=== PATIENT | male | born 1995 | race Caucasian/White ===

== ENCOUNTER 2018-05-20 05:06 | Inpatient (IN) | payer OTHER, MEDICAID ==
[2018-05-20] VITALS (33 sets, daily range): BP systolic 113–165; BP diastolic 46–106
[~2018-05-20] VITALS: Ht 185.4 cm; Wt 119.4 kg
[2018-05-20] MEDS ORDERED: SODIUM CHLORIDE 0.9% 1,000 ML IVB ONE (05:35)
[2018-05-20] MEDS ORDERED: SODIUM CHLORIDE 0.9% 2,000 ML IV ONE ×2 (05:45→06:45)
[2018-05-20 05:46] LABS: Basophils # (auto) 0.1 uL; Basophils % (auto) 0.3 % (0.0-2.0); Eosinophils # (auto) 0 uL; Hemoglobin 18.3 g/dL (13.5-17.5); Monocytes # (auto) 2.3 uL
[2018-05-20 05:48] LABS: Lymphocytes # (auto) 2.1 uL; Lymphocytes % (auto) 7.8 % (10.0-50.0); Mean Corpuscular Hemoglobin 29.9 pg (28.0-32.0); Mean Corpuscular Hgb Conc. 29.8 g/dL (32.0-36.0); Mean Corpuscular Volume 100.1 fL (80.0-100.0); Monocytes % (auto) 8.6 % (0.0-12.0); Neutrophils # (auto) 22.3 uL; Neutrophils % (auto) 83.3 % (37.0-80.0); Platelet Count (auto) 327 10^3/uL (140-450); Red Blood Cells 6.13 10^6/uL (4.5-5.90); Red Cell Distribution Width 14.9 % (11.8-14.3); White Blood Cell 26.8 10^3/uL (4.4-10.8)
[2018-05-20] MEDS ORDERED: InsuLIN REG 1unit/0.01ml Soln (100units/ml) IV ONE (06:00)
[2018-05-20 06:02] LABS: Urine Bacteria FEW /hpf (None Seen); Urine Blood 1+ /uL (Negative); Urine Specific Gravity 1.023 (1.001-1.035); Urine WBC 1 /hpf (0 - 3)
[2018-05-20 06:02] LABS: Hematocrit 61.4 % (41.0-53.0)
[2018-05-20 06:05] LABS: Alanine Aminotransferase 31 U/L (16-61); Albumin 4.1 g/dL (3.4-5.0); Anion Gap 31 (5-15); Aspartate Aminotransferase 12 U/L (15-37); BUN/Creatinine Ratio 15.4; Blood Urea Nitrogen 35 mg/dL (7-18); Chloride 95 mmol/L (98-107); GFR African American 46 mL/min; GFR Non-African American 38 mL/min; Potassium 5.4 mmol/L (3.5-5.1); Sodium 130 mmol/L (136-145)
[2018-05-20 06:06] LABS: Alcohol, Urine < 3.0 mg/dL (0-5); Amphetamine Screen, Urine NEGATIVE (NEGATIVE); Barbiturate Scree,Urine NEGATIVE (NEGATIVE); Benzodiazephine Screen, Urine NEGATIVE (NEGATIVE); Cannabinoid Screen, Urine NEGATIVE (NEGATIVE); Cocaine Screen, Urine NEGATIVE (NEGATIVE); Opiate Scree,Urine NEGATIVE (NEGATIVE); Phencyclidine Screen, Urine NEGATIVE (NEGATIVE)
[2018-05-20 06:08] LABS: Alkaline Phosphatase 180 U/L (45-117); Bilirubin, Total 0.6 mg/dL (0.2-1.0); Total Protein 9.4 g/dL (6.4-8.2)
[2018-05-20 06:09] LABS: INR 0.99 (0.9-1.15); Partial Thromboplastin Time 38.4 sec (23.78-33.04); Prothrombin Time 10.6 sec (9.27-12.13)
[2018-05-20 06:12] LABS: Blood Alcohol < 3.0 mg/dL (0-5); Magnesium 3.7 mg/dL (1.6-2.6)
[2018-05-20 06:21] LABS: Carbon Dioxide 4 mmol/L (21-32)
[2018-05-20 06:24] LABS: Glucose 857 mg/dL (74-106)
[2018-05-20] MEDS ORDERED: SODIUM BICARBONATE 8.4 % INJ 50ML VIAL IV ONE ×2 (06:30→07:30)
[2018-05-20] MEDS ORDERED: InsuLIN R (HUMAN) 100 UNITS in SODIUM CHL 0.9% 99 ML IV SCH (06:43)
[2018-05-20] MEDS ORDERED: DEXTROSE (50%) 50ML SYRG IV PRN ×2 (06:45→13:15)
[2018-05-20] MEDS ORDERED: SODIUM CHLORIDE 0.9% 1,000 ML IV ONE (06:45)
[2018-05-20] MEDS ORDERED: cefTRIAXone 1GM/50ML D5W 50 ML IV ONE (12:45)
[2018-05-20] MEDS ORDERED: SODIUM CHLORIDE 0.9% 1,000 ML IV SCH (13:04)
[2018-05-20] MEDS ORDERED: PROMETHAZINE HCL 25 MG/ML 1ML IV PRN (13:15)
[2018-05-20] MEDS ORDERED: MORPHINE SULFATE 4 MG/ML SYR/VIAL IV PRN ×2 (13:15)
[2018-05-20] MEDS ORDERED: LACTULOSE 20Gm/30ML SOLN PO PRN (13:15)
[2018-05-20] MEDS ORDERED: LORazepam 0.5 MG TAB PO PRN (13:15)
[2018-05-20] MEDS ORDERED: TEMAZEPAM 15 MG CAP PO PRN (13:15)
[2018-05-20] MEDS ORDERED: NITROGLYCERIN 0.4 MG SL TAB SL PRN (13:15)
[2018-05-20] MEDS ORDERED: HYDROcodone-ACET 5/325MG TAB PO PRN (13:15)
[2018-05-20] MEDS: InsuLIN R (HUMAN) 100 UNITS in SODIUM CHL 0.9% 99 ML IV SCH ×5 (13:45→21:28)
[2018-05-20] MEDS: ACCU-CHEK COMFORT CURVE STRIP VI SCH ×7 (13:48→22:35)
[2018-05-20] MEDS: SODIUM CHLORIDE 0.9% 1,000 ML IV SCH ×3 (15:10→17:30)
[2018-05-20 15:25] LABS: Chloride 118 mmol/L (98-107); Potassium 4.4 mmol/L (3.5-5.1); Sodium 144 mmol/L (136-145)
[2018-05-20 15:26] LABS: Amylase 154 U/L (25-115); Anion Gap 19 (5-15); BUN/Creatinine Ratio 19.1; Blood Urea Nitrogen 30 mg/dL (7-18); GFR African American 71 mL/min; GFR Non-African American 59 mL/min; Glucose 267 mg/dL (74-106)
[2018-05-20 15:28] LABS: Carbon Dioxide 7 mmol/L (21-32)
[2018-05-20 19:21] LABS: BUN/Creatinine Ratio 15.5; Calcium 8.2 mg/dL (8.5-10.1)
[2018-05-21] VITALS (36 sets, daily range): BP systolic 119–177; BP diastolic 49–102
[2018-05-21] MEDS: ACCU-CHEK COMFORT CURVE STRIP VI SCH ×12 (00:24→19:49)
[2018-05-21 01:21] LABS: BUN/Creatinine Ratio 12.8; Calcium 8.7 mg/dL (8.5-10.1); Potassium 3.9 mmol/L (3.5-5.1)
[2018-05-21 03:52] LABS: Basophils # (auto) 0 uL; Basophils % (auto) 0.2 % (0.0-2.0); Eosinophils # (auto) 0 uL; Eosinophils % (auto) 0.2 % (0.0-7.0); Hematocrit 47.6 % (41.0-53.0); Hemoglobin 15.8 g/dL (13.5-17.5); Lymphocytes # (auto) 0.7 uL; Lymphocytes % (auto) 6.2 % (10.0-50.0); Mean Corpuscular Hemoglobin 30.3 pg (28.0-32.0); Mean Corpuscular Hgb Conc. 33.3 g/dL (32.0-36.0); Mean Corpuscular Volume 90.9 fL (80.0-100.0); Monocytes # (auto) 1.1 uL; Monocytes % (auto) 9.6 % (0.0-12.0); Neutrophils # (auto) 9.2 uL; Neutrophils % (auto) 83.8 % (37.0-80.0); Platelet Count (auto) 171 10^3/uL (140-450); Red Blood Cells 5.23 10^6/uL (4.5-5.90); Red Cell Distribution Width 14.6 % (11.8-14.3)
[2018-05-21 04:19] LABS: Albumin 3.3 g/dL (3.4-5.0); Calcium 8.8 mg/dL (8.5-10.1); Potassium 3.9 mmol/L (3.5-5.1)
[2018-05-21 04:23] LABS: BUN/Creatinine Ratio 12.7; Bilirubin, Total 0.4 mg/dL (0.2-1.0); Total Protein 7.6 g/dL (6.4-8.2)
[2018-05-21] MEDS: SODIUM CHLORIDE 0.9% 1,000 ML IV SCH ×2 (06:24→08:24)
[2018-05-21] MEDS ORDERED: cefTRIAXone 1GM/50ML D5W 50 ML IV SCH (09:00)
[2018-05-21] MEDS: PANTOPRAZOLE 40 MG TAB PO SCH (10:22)
[2018-05-21 10:48] LABS: Potassium 3.3 mmol/L (3.5-5.1)
[2018-05-21 10:55] LABS: BUN/Creatinine Ratio 13.2; Calcium 8.7 mg/dL (8.5-10.1)
[2018-05-21] MEDS ORDERED: POTASSIUM CHL 20 Meq TABLET PO ONE (12:15)
[2018-05-21] MEDS ORDERED: LACTATED RINGER'S 1,000 ML IV SCH (12:15)
[2018-05-21] MEDS ORDERED: INSULIN LANTUS (GLARGINE) 1 /0.01ml (100units/ml) SC ONE (12:15)
[2018-05-21] MEDS ORDERED: DEXTROSE (50%) 50ML SYRG IV PRN (14:30)
[2018-05-21] MEDS ORDERED: LISINOPRIL 10 MG TAB PO ONE (15:30)
[2018-05-21] MEDS: LACTATED RINGER'S 1,000 ML IV SCH ×2 (15:38→18:34)
[2018-05-21] MEDS: InsuLIN REG 1unit/0.01ml Soln (100units/ml) SC SCH ×2 (15:48→19:50)
[2018-05-21] MEDS ORDERED: LABETALOL HCL 5 MG/ML ML 20ML VIAL IV PRN (18:00)
[2018-05-22] VITALS (24 sets, daily range): BP systolic 104–152; BP diastolic 44–109
[2018-05-22] MEDS: ACCU-CHEK COMFORT CURVE STRIP VI SCH ×7 (01:45→23:46)
[2018-05-22] MEDS: InsuLIN REG 1unit/0.01ml Soln (100units/ml) SC SCH ×7 (01:46→23:46)
[2018-05-22 04:15] LABS: Basophils # (auto) 0 uL; Basophils % (auto) 0.1 % (0.0-2.0); Eosinophils # (auto) 0.1 uL; Eosinophils % (auto) 0.8 % (0.0-7.0); Hematocrit 42.2 % (41.0-53.0); Hemoglobin 14.1 g/dL (13.5-17.5); Lymphocytes # (auto) 0.7 uL; Lymphocytes % (auto) 11.9 % (10.0-50.0); Mean Corpuscular Hemoglobin 29.9 pg (28.0-32.0); Mean Corpuscular Hgb Conc. 33.3 g/dL (32.0-36.0); Mean Corpuscular Volume 89.5 fL (80.0-100.0); Monocytes # (auto) 0.7 uL; Monocytes % (auto) 10.5 % (0.0-12.0); Neutrophils # (auto) 4.8 uL; Neutrophils % (auto) 76.7 % (37.0-80.0); Nucleated Red Blood Cells % 0.1 %; Platelet Count (auto) 150 10^3/uL (140-450); Red Blood Cells 4.71 10^6/uL (4.5-5.90); Red Cell Distribution Width 14.3 % (11.8-14.3); White Blood Cell 6.2 10^3/uL (4.4-10.8)
[2018-05-22 04:29] LABS: Potassium 3.4 mmol/L (3.5-5.1)
[2018-05-22 04:37] LABS: Albumin 2.9 g/dL (3.4-5.0); BUN/Creatinine Ratio 12.1; Bilirubin, Total 0.6 mg/dL (0.2-1.0); Total Protein 6.7 g/dL (6.4-8.2)
[2018-05-22] MEDS: LACTATED RINGER'S 1,000 ML IV SCH ×3 (07:56→23:46)
[2018-05-22] MEDS: PANTOPRAZOLE 40 MG TAB PO SCH (09:46)
[2018-05-22] MEDS: LISINOPRIL 10 MG TAB PO SCH (10:00)
[2018-05-22] MEDS ORDERED: POTASSIUM CHL 20 Meq TABLET PO ONE ×2 (12:15→13:30)
[2018-05-22 12:54] LABS: BUN/Creatinine Ratio 14.4; Calcium 8.8 mg/dL (8.5-10.1); Potassium 3.2 mmol/L (3.5-5.1)
[2018-05-22] MEDS: INSULIN 70/30 1unit/0.01ml Susp (100units/ml) SC SCH (21:37)
[2018-05-23] VITALS (18 sets, daily range): BP systolic 99–147; BP diastolic 35–78
[2018-05-23] MEDS: InsuLIN REG 1unit/0.01ml Soln (100units/ml) SC SCH ×5 (03:32→20:08)
[2018-05-23] MEDS: ACCU-CHEK COMFORT CURVE STRIP VI SCH ×5 (03:32→20:08)
[2018-05-23] MEDS: LACTATED RINGER'S 1,000 ML IV SCH ×3 (08:07→23:06)
[2018-05-23] MEDS: PANTOPRAZOLE 40 MG TAB PO SCH (09:45)
[2018-05-23] MEDS: LISINOPRIL 10 MG TAB PO SCH (09:46)
[2018-05-23] MEDS: INSULIN 70/30 1unit/0.01ml Susp (100units/ml) SC SCH ×2 (09:46→22:27)
[2018-05-23] MEDS: ENOXAPARIN SOD 40 MG/0.4 ML SYRINGE SC SCH (09:47)
[2018-05-23 10:34] LABS: BUN/Creatinine Ratio 12.6; Calcium 8.4 mg/dL (8.5-10.1); Potassium 3.5 mmol/L (3.5-5.1)
[2018-05-24] MEDS: ACCU-CHEK COMFORT CURVE STRIP VI SCH ×6 (03:58→19:57)
[2018-05-24] MEDS: InsuLIN REG 1unit/0.01ml Soln (100units/ml) SC SCH ×6 (03:58→19:57)
[2018-05-24] MEDS: ACETAMINOPHEN 500 MG TAB PO PRN ×3 (04:04→18:14)
[2018-05-24 05:00] VITALS: BP 134/69
[2018-05-24 06:45] LABS: Albumin 2.8 g/dL (3.4-5.0); Calcium 8.6 mg/dL (8.5-10.1); Magnesium 2.5 mg/dL (1.6-2.6)
[2018-05-24 06:48] LABS: BUN/Creatinine Ratio 12.5; Bilirubin, Total 0.5 mg/dL (0.2-1.0); Total Protein 6.1 g/dL (6.4-8.2)
[2018-05-24 06:49] LABS: Potassium 2.7 mmol/L (3.5-5.1)
[2018-05-24] MEDS ORDERED: POTASSIUM CHL 20 Meq TABLET PO ONE ×2 (07:15→11:45)
[2018-05-24] MEDS: LACTATED RINGER'S 1,000 ML IV SCH (08:08)
[2018-05-24 08:55] VITALS: BP 108/48
[2018-05-24] MEDS: PANTOPRAZOLE 40 MG TAB PO SCH (09:53)
[2018-05-24] MEDS: ENOXAPARIN SOD 40 MG/0.4 ML SYRINGE SC SCH (09:53)
[2018-05-24] MEDS: INSULIN 70/30 1unit/0.01ml Susp (100units/ml) SC SCH ×2 (09:53→22:47)
[2018-05-24] MEDS ORDERED: LISINOPRIL 5 MG TAB PO SCH (10:00)
[2018-05-24] MEDS ORDERED: POTASSIUM CHL 20MEQ/100ML 100 ML IV ONE (11:45)
[2018-05-24 13:00] VITALS: BP 132/72
[2018-05-24 17:00] VITALS: BP 140/85
[2018-05-24 22:00] VITALS: BP 121/54
[2018-05-25] MEDS: InsuLIN REG 1unit/0.01ml Soln (100units/ml) SC SCH ×3 (00:50→08:42)
[2018-05-25] MEDS: ACCU-CHEK COMFORT CURVE STRIP VI SCH ×3 (04:00→08:42)
[2018-05-25 04:47] VITALS: BP 116/66
[2018-05-25 09:00] VITALS: BP 122/63
[2018-05-25] MEDS: ACETAMINOPHEN 500 MG TAB PO PRN (12:39)
[2018-05-25 13:00] VITALS: BP 122/71
== END 2018-05-25 16:45 | disposition home or self-care (01) | DRG 638 ==
LOC: EDBD 05:06 → ER 05:16 → TELE 13:08 → ICU WEST 15:30 → WEST WING 05-23 15:33 → TELE-WESTW 05-23 15:58
PROVIDERS: ADMIT Internal Medicine; ATTEND Internal Medicine
DX: E10.10 Type 1 diabetes mellitus with ketoacidosis without coma (principal); E44.0 Moderate protein-calorie malnutrition; R65.10 Systemic inflammatory response syndrome (SIRS) of non-infectious origin without acute organ dysfunction; J45.909 Unspecified asthma, uncomplicated; E66.9 Obesity, unspecified; D72.829 Elevated white blood cell count, unspecified; Z83.3 Family history of diabetes mellitus; Z82.49 Family history of ischemic heart disease and other diseases of the circulatory system; Z72.0 Tobacco use; Z68.34 Body mass index [BMI] 34.0-34.9, adult
CPT/HCPCS: 36415; 36600; 51702; 71045; 74176; 80048; 80053; 80307; 80320; 81001; 82150; 82805; 82962; 83036; 83605; 83690; 83735; 84132; 84484; 85025; 85610; 85652; 85730; 87040; 87081; 93005; 96361; 96365; 96367; 96375; 99291; A6257; G0378; J0696; J1815; J3480

== ENCOUNTER → 2019-07-22 | Outpatient (CLI) | payer OTHER ==
[2019-07-22 11:12] LABS: Basophils # (auto) 0 uL; Basophils % (auto) 0.3 % (0.0-2.0); Eosinophils # (auto) 0.1 uL; Eosinophils % (auto) 2.7 % (0.0-7.0); Hematocrit 49.5 % (41.0-53.0); Lymphocytes # (auto) 1.1 uL; Lymphocytes % (auto) 19.3 % (10.0-50.0); Mean Corpuscular Hgb Conc. 34.4 g/dL (32.0-36.0); Mean Corpuscular Volume 90.4 fL (80.0-100.0); Monocytes # (auto) 0.5 uL; Monocytes % (auto) 8.5 % (0.0-12.0); Neutrophils # (auto) 3.8 uL; Neutrophils % (auto) 69.2 % (37.0-80.0); Nucleated Red Blood Cells % 0.1 %; Platelet Count (auto) 202 10^3/uL (140-450); Red Blood Cells 5.47 10^6/uL (4.5-5.90); Red Cell Distribution Width 12.4 % (11.8-14.3); White Blood Cell 5.5 10^3/uL (4.4-10.8)
[2019-07-22 11:15] LABS: Urine Bacteria NONE SEEN /hpf (None Seen); Urine Blood Negative /uL (Negative); Urine Specific Gravity 1.046 (1.001-1.035); Urine WBC 1 /hpf (0 - 3)
[2019-07-22 11:51] LABS: Albumin 4.2 g/dL (3.4-5.0); Calcium 9.9 mg/dL (8.5-10.1); Potassium 4.6 mmol/L (3.5-5.1)
[2019-07-22 11:56] LABS: BUN/Creatinine Ratio 17.4; Bilirubin, Total 0.8 mg/dL (0.2-1.0); Total Protein 8.9 g/dL (6.4-8.2)
== END | disposition home or self-care (01) ==
LOC: LAB 10:51
PROVIDERS: ATTEND Nurse Practitioner
DX: Z00.00 Encounter for general adult medical examination without abnormal findings (principal); E78.5 Hyperlipidemia, unspecified; E11.9 Type 2 diabetes mellitus without complications
CPT/HCPCS: 36415; 80053; 80061; 81001; 82043; 83036; 84443; 85025

== ENCOUNTER 2019-08-10 17:26 | Inpatient (IN) | payer OTHER, MEDICAID ==
[~2019-08-10] VITALS: Ht 182.9 cm; Wt 92.4 kg
[2019-08-10 18:51] LABS: Basophils # (auto) 0 uL; Basophils % (auto) 0.1 % (0.0-2.0); Eosinophils # (auto) 0 uL; Eosinophils % (auto) 0.1 % (0.0-7.0); Hemoglobin 20.1 g/dL (13.5-17.5); Lymphocytes # (auto) 0.5 uL; Lymphocytes % (auto) 5.1 % (10.0-50.0); Mean Corpuscular Hemoglobin 31.9 pg (28.0-32.0); Mean Corpuscular Hgb Conc. 34.2 g/dL (32.0-36.0); Mean Corpuscular Volume 93.3 fL (80.0-100.0); Monocytes # (auto) 0.7 uL; Monocytes % (auto) 6.9 % (0.0-12.0); Neutrophils # (auto) 8.4 uL; Neutrophils % (auto) 87.8 % (37.0-80.0); Nucleated Red Blood Cells % 0.4 %; Platelet Count (auto) 232 10^3/uL (140-450); Red Blood Cells 6.31 10^6/uL (4.5-5.90); Red Cell Distribution Width 13.6 % (11.8-14.3); White Blood Cell 9.5 10^3/uL (4.4-10.8)
[2019-08-10 18:53] LABS: Hematocrit 58.9 % (41.0-53.0)
[2019-08-10 19:05] LABS: Albumin 4.6 g/dL (3.4-5.0); Calcium 10.1 mg/dL (8.5-10.1); Potassium 4.5 mmol/L (3.5-5.1)
[2019-08-10 19:09] LABS: BUN/Creatinine Ratio 8.5; Bilirubin, Total 0.6 mg/dL (0.2-1.0); Total Protein 10.6 g/dL (6.4-8.2)
[2019-08-10] MEDS ORDERED: ONDANSETRON HCL 4 MG/2 ML VIAL IV ONE (19:30)
[2019-08-10] MEDS ORDERED: SODIUM CHLORIDE 0.9% 1,000 ML IV ONE ×2 (19:30→21:15)
[2019-08-11] VITALS (7 sets, daily range): BP systolic 112–140; BP diastolic 46–80
[2019-08-11 00:09] LABS: Urine Bacteria FEW /hpf (None Seen); Urine Blood 1+ /uL (Negative); Urine Hyaline Cast MANY /lpf (0 - 2); Urine Mucus FEW (None Seen); Urine Specific Gravity 1.024 (1.001-1.035); Urine WBC 1 /hpf (0 - 3)
[2019-08-11 00:25] LABS: Amphetamine Screen, Urine NEGATIVE (NEGATIVE); Cannabinoid Screen, Urine POSITIVE (NEGATIVE)
[2019-08-11 00:27] LABS: Alcohol, Urine < 3.0 mg/dL (0-5); Barbiturate Scree,Urine NEGATIVE (NEGATIVE); Benzodiazephine Screen, Urine NEGATIVE (NEGATIVE); Cocaine Screen, Urine NEGATIVE (NEGATIVE); Opiate Scree,Urine NEGATIVE (NEGATIVE); Phencyclidine Screen, Urine NEGATIVE (NEGATIVE)
[2019-08-11] MEDS ORDERED: SODIUM BICARBONATE 8.4 % INJ 50ML VIAL IV ONE ×2 (01:00→01:54)
[2019-08-11] MEDS ORDERED: SODIUM BICARBONATE 50ML VIAL 50 ML in SOD CHL 0.45% 1,000 ML IV ONE (01:00)
[2019-08-11] MEDS ORDERED: MORPHINE SULF INJ 2 MG/ML SYRINGE 1ML IV PRN (02:30)
[2019-08-11] MEDS ORDERED: DEXTROSE (50%) 50ML SYRG IV PRN ×2 (02:30→14:15)
[2019-08-11] MEDS ORDERED: SODIUM CHLORIDE 0.9% 500 ML IV ONE (02:30)
[2019-08-11] MEDS ORDERED: ONDANSETRON HCL 4 MG/2 ML VIAL IV PRN (02:30)
[2019-08-11] MEDS ORDERED: NITROGLYCERIN 0.4 MG SL TAB SL PRN (02:30)
[2019-08-11] MEDS ORDERED: TEMAZEPAM 15 MG CAP PO PRN (02:30)
[2019-08-11 03:31] LABS: BUN/Creatinine Ratio 11.2; Calcium 8.6 mg/dL (8.5-10.1); Potassium 4.3 mmol/L (3.5-5.1)
[2019-08-11] MEDS: InsuLIN REG 1unit/0.01ml Soln (100units/ml) SC SCH ×4 (04:06→17:39)
[2019-08-11] MEDS: ACCU-CHEK COMFORT CURVE STRIP VI SCH ×5 (04:06→22:52)
[2019-08-11] MEDS ORDERED: INSU70IN3 SC (05:01)
[2019-08-11] MEDS: SODIUM CHLORIDE 0.9% 1,000 ML IV SCH ×2 (06:02→12:18)
[2019-08-11] MEDS: FAMOTIDINE 20 MG TAB PO SCH ×2 (10:09→22:17)
[2019-08-11] MEDS: INSULIN 70/30 1unit/0.01ml Susp (100units/ml) SC SCH (17:39)
[2019-08-11] MEDS ORDERED: InsuLIN REG 1unit/0.01ml Soln (100units/ml) SC SCH (22:00)
[2019-08-12 04:53] VITALS: BP 128/60
[2019-08-12 06:22] LABS: Basophils # (auto) 0 uL; Basophils % (auto) 0.4 % (0.0-2.0); Eosinophils # (auto) 0.2 uL; Hematocrit 42.1 % (41.0-53.0); Hemoglobin 14.5 g/dL (13.5-17.5); Lymphocytes # (auto) 1.4 uL; Lymphocytes % (auto) 29.1 % (10.0-50.0); Mean Corpuscular Hemoglobin 31.5 pg (28.0-32.0); Mean Corpuscular Hgb Conc. 34.5 g/dL (32.0-36.0); Mean Corpuscular Volume 91.5 fL (80.0-100.0); Monocytes # (auto) 0.5 uL; Monocytes % (auto) 10.9 % (0.0-12.0); Neutrophils # (auto) 2.8 uL; Neutrophils % (auto) 55.6 % (37.0-80.0); Platelet Count (auto) 118 10^3/uL (140-450); Red Cell Distribution Width 13.2 % (11.8-14.3)
[2019-08-12 06:48] LABS: BUN/Creatinine Ratio 13.2; Calcium 8.8 mg/dL (8.5-10.1)
[2019-08-12] MEDS: ACCU-CHEK COMFORT CURVE STRIP VI SCH ×2 (06:50→11:51)
[2019-08-12] MEDS: InsuLIN REG 1unit/0.01ml Soln (100units/ml) SC SCH ×2 (06:51→11:52)
[2019-08-12 07:06] LABS: Potassium 2.9 mmol/L (3.5-5.1)
[2019-08-12] MEDS: INSULIN 70/30 1unit/0.01ml Susp (100units/ml) SC SCH (08:56)
[2019-08-12 09:00] VITALS: BP 120/50
[2019-08-12] MEDS ORDERED: POTASSIUM CHL 20 Meq TABLET PO ONE (09:45)
[2019-08-12] MEDS ORDERED: POTASSIUM PHOSPHATE 44 MEQ in D5W 5% 250 ML IV ONE (09:45)
[2019-08-12] MEDS: FAMOTIDINE 20 MG TAB PO SCH (10:11)
[2019-08-12 13:00] VITALS: BP 141/65
[2019-08-12 15:59] VITALS: BP 141/65
== END 2019-08-12 16:42 | disposition home or self-care (01) | DRG 637 ==
LOC: ER 17:26 → TELE 17:27 → TELE-WESTW 08-11 04:35 → WEST WING 08-11 14:42
PROVIDERS: ADMIT Nurse Practitioner; ATTEND Internal Medicine
DX: E11.10 Type 2 diabetes mellitus with ketoacidosis without coma (principal); N17.0 Acute kidney failure with tubular necrosis; E86.0 Dehydration; F12.90 Cannabis use, unspecified, uncomplicated; F17.200 Nicotine dependence, unspecified, uncomplicated; Z82.5 Family history of asthma and other chronic lower respiratory diseases; Z79.4 Long term (current) use of insulin
CPT/HCPCS: 36415; 36600; 71045; 80048; 80053; 80307; 80320; 81001; 82010; 82805; 82962; 83605; 83880; 84100; 84132; 85025; 87804; 93005; 96361; 96365; 96375; G0378; J1815; J2405; J7060

== ENCOUNTER 2019-09-23 10:50 | Inpatient (IN) | payer MEDICAID, OTHER ==
[~2019-09-23] VITALS: Ht 188 cm; Wt 93.2 kg
[~2019-09-23 10:50] MED LIST: INSU70IN3 SC
[2019-09-23] MEDS ORDERED: SODIUM CHLORIDE 0.9% 1,000 ML IV ONE ×2 (11:02→13:15)
[2019-09-23] MEDS ORDERED: ONDANSETRON HCL 4 MG/2 ML VIAL IV ONE (11:15)
[2019-09-23 11:35] LABS: Basophils # (auto) 0 10 ^3/uL (0-0.2); Eosinophils # (auto) 0.1 10 ^3/uL (0-0.8); Lymphocytes # (auto) 1.3 10 ^3/uL (0.4-5.4); Monocytes # (auto) 0.8 10 ^3/uL (0-1.3); Red Cell Distribution Width 14.7 % (11.8-14.3); White Blood Cell 7.2 10^3/uL (4.4-10.8)
[2019-09-23 11:37] LABS: Basophils % (auto) 0.4 % (0.0-2.0); Eosinophils % (auto) 1.4 % (0.0-7.0); Hematocrit 55.4 % (41.0-53.0); Hemoglobin 20.1 g/dL (13.5-17.5); Lymphocytes % (auto) 17.9 % (10.0-50.0); Mean Corpuscular Hemoglobin 33.3 pg (28.0-32.0); Mean Corpuscular Hgb Conc. 36.3 g/dL (32.0-36.0); Mean Corpuscular Volume 91.8 fL (80.0-100.0); Monocytes % (auto) 11.1 % (0.0-12.0); Neutrophils % (auto) 69.2 % (37.0-80.0); Nucleated Red Blood Cells % 0.4 %; Platelet Count (auto) 283 10^3/uL (140-450); Red Blood Cells 6.03 10^6/uL (4.5-5.90)
[2019-09-23 11:46] LABS: Albumin 4.4 g/dL (3.4-5.0); Calcium 10.9 mg/dL (8.5-10.1); Potassium 3.5 mmol/L (3.5-5.1)
[2019-09-23 11:49] LABS: BUN/Creatinine Ratio 9.1; Bilirubin, Total 0.8 mg/dL (0.2-1.0); Total Protein 10.2 g/dL (6.4-8.2)
[2019-09-23] MEDS ORDERED: TEMAZEPAM 15 MG CAP PO PRN (13:00)
[2019-09-23] MEDS ORDERED: ACETAMINOPHEN 500 MG TAB PO PRN (13:00)
[2019-09-23] MEDS ORDERED: PROMETHAZINE HCL 25 MG/ML 1ML IV PRN (13:00)
[2019-09-23] MEDS ORDERED: NITROGLYCERIN 0.4 MG SL TAB SL PRN (13:00)
[2019-09-23] MEDS ORDERED: MORPHINE SULF INJ 2 MG/ML SYRINGE 1ML IV PRN (13:00)
[2019-09-23] MEDS ORDERED: DEXTROSE (50%) 50ML SYRG IV PRN (13:00)
[2019-09-23 13:17] LABS: Amylase 30 U/L (25-115); Lipase 111 U/L (73-393)
--- NOTE | 2019-09-23 13:45 | NUR ---
MS admit from ER KAREN MIKE admitted to tele/MS after SBAR received. Patient oriented to PATRIZIA CUNNINGHAM, RN primary RN, unit, room, bed, and unit policies regarding patient care and visiting hours. Patient weighed by bedscale and encouraged to call if they need something. All questions and concerns addressed, patient verbalized understanding. Note:
[2019-09-23 14:02] LABS: Urine Amorphous Crystal MOD /hpf (None Seen); Urine Bacteria NONE SEEN /hpf (None Seen); Urine Blood 3+ /uL (Negative); Urine Specific Gravity 1.022 (1.001-1.035); Urine WBC 27 /hpf (0 - 3)
[2019-09-23] MEDS ORDERED: cefTRIAXone 1GM/50ML D5W 50 ML IV ONE (14:45)
[2019-09-23 14:52] VITALS: BP 123/77
[2019-09-23 14:53] VITALS: BP 123/77
[2019-09-23] MEDS: ACCU-CHEK COMFORT CURVE STRIP VI SCH ×3 (16:21→23:55)
[2019-09-23] MEDS: InsuLIN REG 1unit/0.01ml Soln (100units/ml) SC SCH ×3 (16:23→23:59)
[2019-09-23] MEDS: SODIUM CHLORIDE 0.9% 1,000 ML IV SCH ×2 (18:30→20:11)
--- NOTE | 2019-09-23 18:30 | NUR ---
UNCOLLECTED UA PATIENT EDUCATED TO PROVIDE URINE SAMPLE, URINAL LEFT AT BEDSIDE.
--- NOTE | 2019-09-23 19:25 | NUR ---
Received report from the Day Shift RN Cookie. Initial assessment done.
--- NOTE | 2019-09-23 19:43 | NUR ---
Pt. SR @ 70's with HR = 71 @ the Tele # 35. Pt. denies any pain. Denies chest pain.
--- NOTE | 2019-09-23 20:16 | NUR ---
Accucheck taken @ 2015 Pm with result of BS = 287 , pt. will be given s/s coverage of Regular Human Insulin - see Emar.
--- NOTE | 2019-09-23 20:27 | NUR ---
Pt. given 9 units of Regular Human insulin SQ @ the [facility] with BS = 287 , see Emar. Pt. aware of his blood sugar and the s/s given/administered @ this time. Pt. verbalized understanding.
[2019-09-23] MEDS: INSULIN LANTUS (GLARGINE) 1 /0.01ml (100units/ml) SC SCH (21:27)
--- NOTE | 2019-09-23 21:27 | NUR ---
Pachecous 15 units given SQ @ [facility] @ 9723 Pm.
[2019-09-23] MEDS: FAMOTIDINE 20 MG TAB PO SCH (21:29)
[2019-09-23 22:00] VITALS: BP 119/54
--- NOTE | 2019-09-23 22:00 | NUR ---
Pt. given snacks/nourishment 2 jellos and 1 sandwich @ hs. [facility].
--- NOTE | 2019-09-23 23:53 | NUR ---
Accucheck taken with result of BS = 274 , pt. will be given Regular Human Insulin per s/s coverage - see Emar.
--- NOTE | 2019-09-23 23:59 | NUR ---
Pt. given 9 units coverage of Regular human Insulin for BS = 274 SQ @ the [facility]. Pt. aware of his blood sugar and the coverage.
--- NOTE | 2019-09-24 00:15 | NUR ---
Pt. SR @ 70's to 80's @ the Tele monitor # 35. Pt. denies pain and denies chest pain. Breathing regular and unlabored in Room Air. Chest expansion equal.
--- NOTE | 2019-09-24 00:30 | NUR ---
Pt. returned to sleep now. Keep pt. room free from noise and lights off to facilitate sleep and rest. Call-light within pt.'s reach.
[2019-09-24] MEDS: SODIUM CHLORIDE 0.9% 1,000 ML IV SCH ×4 (02:22→22:16)
--- NOTE | 2019-09-24 04:00 | NUR ---
Pt. sleeping and comfortable. IVF of NS continuously running @ 150 ml./hr. @ the RAC. SR @ 70's to 80's @ the Tele monitor # 35.
[2019-09-24] MEDS: ACCU-CHEK COMFORT CURVE STRIP VI SCH ×5 (04:46→20:24)
--- NOTE | 2019-09-24 04:46 | NUR ---
Accucheck result is 178, pt. will be given s/s coverage of Regular Human Insulin - see Emar.
[2019-09-24] MEDS: InsuLIN REG 1unit/0.01ml Soln (100units/ml) SC SCH ×5 (04:53→20:30)
--- NOTE | 2019-09-24 04:53 | NUR ---
Pt. given 3 units of Regular Human Insulin SQ @ the [facility] for BS result of 178 - see Emar. Pt. aware of the Insulin given and blood sugar result. Pt. verbalized understanding.
[2019-09-24 05:00] VITALS: BP 122/51
--- NOTE | 2019-09-24 05:00 | NUR ---
Collected Urine sample for U/A for bacterial count, dated, timed and signed by RN. Sellers and sent to lab.
[2019-09-24] MEDS: INSULIN LANTUS (GLARGINE) 1 /0.01ml (100units/ml) SC SCH ×2 (07:02→22:15)
[2019-09-24 07:17] LABS: Basophils # (auto) 0 10 ^3/uL (0-0.2); Basophils % (auto) 0.4 % (0.0-2.0); Eosinophils # (auto) 0.1 10 ^3/uL (0-0.8); Eosinophils % (auto) 2.6 % (0.0-7.0); Hematocrit 43.6 % (41.0-53.0); Hemoglobin 15.3 g/dL (13.5-17.5); Mean Corpuscular Hemoglobin 32.4 pg (28.0-32.0); Mean Corpuscular Volume 92.4 fL (80.0-100.0); Monocytes # (auto) 0.7 10 ^3/uL (0-1.3); Monocytes % (auto) 13.1 % (0.0-12.0); Neutrophils # (auto) 3.4 10 ^3/uL (1.6-8.6); Neutrophils % (auto) 64.9 % (37.0-80.0); Nucleated Red Blood Cells % 0.2 %; Platelet Count (auto) 174 10^3/uL (140-450); Red Blood Cells 4.72 10^6/uL (4.5-5.90); Red Cell Distribution Width 14.4 % (11.8-14.3); White Blood Cell 5.3 10^3/uL (4.4-10.8)
[2019-09-24 07:35] LABS: Albumin 3.1 g/dL (3.4-5.0); Potassium 3.4 mmol/L (3.5-5.1)
[2019-09-24 07:40] LABS: BUN/Creatinine Ratio 10.9; Bilirubin, Total 0.5 mg/dL (0.2-1.0)
[2019-09-24] MEDS: FAMOTIDINE 20 MG TAB PO SCH ×2 (08:25→22:15)
[2019-09-24 09:00] VITALS: BP 142/68
[2019-09-24] MEDS ORDERED: cefTRIAXone 1GM/50ML D5W 50 ML IV SCH (09:00)
[2019-09-24 13:00] VITALS: BP 127/62
[2019-09-24] MEDS ORDERED: POTASSIUM CHL 20 Meq TABLET PO ONE (14:15)
--- NOTE | 2019-09-24 14:58 | NUR ---
NUTRITION ASSESSMENT NOTES Please refer to link notes of nutrition screen form filed under the intervention section of the plan of care for further details. Est. Energy Needs: 5975-8857 kcal (25-30 kcal/kg BW). Est. Protein Needs: 70-88 gms/day (0.8-1.0 gms/kg BW). Will continue to monitor pertinent labs and reassess nutrient need prn Addendum: 09/24/19 at [address] Amended: Links added.
[2019-09-24] MEDS: traMADol HCL 50 MG TAB PO PRN (15:48)
--- NOTE | 2019-09-24 16:45 | NUR ---
Patient stated he has pain in his stomach and back. Patient stated the pain is a in his lower abdomen radiating to his back sharp throbbing pain. Patient stated his pain is making it hard to breath. V/s WNL Paged water control station engineer hospitalist. Awaiting call back. vs 134/86 bp heart rate 73, 21 respirations O2 97% on room air, temp 97.9 F did another blood glucose was 332.
[2019-09-24 17:00] VITALS: BP 108/52
--- NOTE | 2019-09-24 19:04 | NUR ---
Paged chemistry quality control technician hospitalist doctor Reji second time.awaiting call back.
--- NOTE | 2019-09-24 19:30 | NUR ---
Received report from Day Shift RN [place]. Initial assessment done. Pt. in bed resting, in Room Air, breathing regular and unlabored. Lngs are clear bilaterally. Pt. alert, awake, oriented x 4, with mild anxiety but stay calm and able to follow commands or compliant to care . Pt. was panicking early afternoon during the day shift @ 1645 pm. Pt. will be watched/monitor for s/s of anxiousness and will be treated/medicated with Lorazepam IV PRN as ordered from the doctor for pt. anxiety. Pt. calm and quiet @ this time. Provided psychological support. Pt. SR @ the monitor 70's to 80s @ the Tele # 35. Denies pain when assessed. Skin is intact. Call-light within pt.'s reach.
--- NOTE | 2019-09-24 19:48 | NUR ---
Received call back from Doctor Reji kaplan MD of patient complaints(see previous note). New orders received see emr for orders. Willl endorse to DILAN floyd.
[2019-09-24] MEDS ORDERED: ONDANSETRON HCL 4 MG/2 ML VIAL IV PRN (20:00)
[2019-09-24] MEDS ORDERED: LORazepam 2MG/ML-1ML VIAL IV PRN (20:00)
[2019-09-24] MEDS ORDERED: HYDROmorphone HCL 2 MG/ML VL IV ONE (20:00)
[2019-09-24] MEDS ORDERED: PANTOPRAZOLE 40 MG/10 ML VIAL INJ IV ONE (20:00)
[2019-09-24 22:00] VITALS: BP 144/86
--- NOTE | 2019-09-25 | NUR ---
Pt. is sleeping well @ this time. No s/s of sob. No s/s of pain or discomfort @ this time. Pt. SR @ the 60's to 70's @ the Tele # 35.
[2019-09-25] MEDS: ACCU-CHEK COMFORT CURVE STRIP VI SCH ×4 (00:53→12:00)
--- NOTE | 2019-09-25 00:53 | NUR ---
Pt. Accucheck taken and result of BS = 244 , Pt. will be given s/s coverage for Regular Human Insulin.
[2019-09-25] MEDS: InsuLIN REG 1unit/0.01ml Soln (100units/ml) SC SCH ×4 (00:57→12:00)
--- NOTE | 2019-09-25 00:57 | NUR ---
Pt. given 6 units of Regular human Insulin SQ @ the [facility] for BS = 244 , see Emar.
[2019-09-25] MEDS: traMADol HCL 50 MG TAB PO PRN (02:03)
--- NOTE | 2019-09-25 02:03 | NUR ---
Pt. given Ultram-Tramadol 50 mg. po due to back and abdominal pain about 6/10 scale. Pt. is also given Ondansetron -Zofran 4 mg. = 2ml IV for nausea feeling as verbalized by the pt.
--- NOTE | 2019-09-25 04:00 | NUR ---
Pt. sleeping undisturbed. SR @ the monitor @ the 70's. No s/s of acute change.
[2019-09-25 05:00] VITALS: BP 152/76
--- NOTE | 2019-09-25 05:02 | NUR ---
Pt. Accucheck result is = 223 , pt. will be given s/s coverage for Regular Human Insulin - see emar.
[2019-09-25] MEDS: INSULIN LANTUS (GLARGINE) 1 /0.01ml (100units/ml) SC SCH (06:15)
[2019-09-25] MEDS: SODIUM CHLORIDE 0.9% 1,000 ML IV SCH ×2 (06:16→14:15)
--- NOTE | 2019-09-25 07:15 | NUR ---
Opening shift note Assumed care patient currently sleeping, no s/s of distress/pain noted at this moment. Patient on room air. Bed in low position, locked and call light with in reach. Will continue care.
[2019-09-25 09:14] VITALS: BP 135/73
[2019-09-25] MEDS: FAMOTIDINE 20 MG TAB PO SCH (09:41)
--- NOTE | 2019-09-25 11:50 | NUR ---
refusing accucheck Patient refusing 1200 accucheck. Patient waiting on discharge. Patient states, " doctor came in a while back and he told me I was going to get discharged right now so i don't need that." Patient educated on importance of monitoring blood sugar while in the hospital and before meals. Patient continues to refuse. Patient states, " please just go work on my paperwork I'm trying to get out of here."
[2019-09-25 12:40] VITALS: BP 120/63
[2019-09-25 14:04] VITALS: BP 20/63
--- NOTE | 2019-09-25 14:41 | NUR ---
Discharge instructions given as ordered. Encourage to follow up with PMD as instructed. All questions and concerns addressed. Patient verbalized understanding. IV removed with catheter intact, pressure dressing applied. Telemetry unit returned to ICU. Patient taken to vehicle via wheelchair with all personal belongings, accompanied by staff. No distress noted at time of departure.
== END 2019-09-25 14:41 | disposition home or self-care (01) | DRG 420 ==
LOC: ER 10:51 → TELE 10:52 → TELE-CENTR 13:46
PROVIDERS: ADMIT Internal Medicine; ATTEND Internal Medicine
DX: E10.10 Type 1 diabetes mellitus with ketoacidosis without coma (principal); N17.0 Acute kidney failure with tubular necrosis; E10.65 Type 1 diabetes mellitus with hyperglycemia; E86.0 Dehydration; N39.0 Urinary tract infection, site not specified; Z91.19 Patient's noncompliance with other medical treatment and regimen
CPT/HCPCS: 36415; 71045; 80053; 81001; 82010; 82150; 82962; 83036; 83690; 85025; 87086; 93005; 96361; 96365; 96375; C9113; G0378; J0696; J1815; J2405

== ENCOUNTER 2019-10-04 20:41 | Inpatient (IN) | payer MEDICAID ==
[~2019-10-04] VITALS: Ht 182.9 cm; Wt 106.9 kg
[2019-10-04] MEDS ORDERED: InsuLIN REG 1unit/0.01ml Soln (100units/ml) IV ONE (21:45)
[2019-10-04 22:04] LABS: Basophils # (auto) 0 10 ^3/uL (0-0.2); Eosinophils # (auto) 0.2 10 ^3/uL (0-0.8); Eosinophils % (auto) 4.7 % (0.0-7.0); Hematocrit 37.6 % (41.0-53.0); Hemoglobin 12.3 g/dL (13.5-17.5); Lymphocytes # (auto) 1.1 10 ^3/uL (0.4-5.4); Lymphocytes % (auto) 32.9 % (10.0-50.0); Mean Corpuscular Hgb Conc. 32.6 g/dL (32.0-36.0); Mean Corpuscular Volume 98.1 fL (80.0-100.0); Monocytes # (auto) 0.5 10 ^3/uL (0-1.3); Monocytes % (auto) 13.8 % (0.0-12.0); Neutrophils # (auto) 1.7 10 ^3/uL (1.6-8.6); Neutrophils % (auto) 47.6 % (37.0-80.0); Nucleated Red Blood Cells % 0.2 %; Platelet Count (auto) 132 10^3/uL (140-450); Red Blood Cells 3.83 10^6/uL (4.5-5.90); Red Cell Distribution Width 16.5 % (11.8-14.3); White Blood Cell 3.5 10^3/uL (4.4-10.8)
[2019-10-04 22:17] LABS: Urine Bacteria NONE SEEN /hpf (None Seen); Urine Blood Negative /uL (Negative); Urine Specific Gravity 1.032 (1.001-1.035); Urine WBC <1 /hpf (0 - 3)
[2019-10-04 22:21] LABS: Albumin 2.8 g/dL (3.4-5.0); Amphetamine Screen, Urine NEGATIVE (NEGATIVE); Barbiturate Scree,Urine NEGATIVE (NEGATIVE); Benzodiazephine Screen, Urine NEGATIVE (NEGATIVE); Calcium 8.1 mg/dL (8.5-10.1); Cannabinoid Screen, Urine POSITIVE (NEGATIVE); Cocaine Screen, Urine NEGATIVE (NEGATIVE); Opiate Scree,Urine NEGATIVE (NEGATIVE); Phencyclidine Screen, Urine NEGATIVE (NEGATIVE)
[2019-10-04 22:22] LABS: INR 0.96 (0.9-1.15); Partial Thromboplastin Time 25.2 sec (23.64-32.05)
[2019-10-04 22:24] LABS: BUN/Creatinine Ratio 14.9; Bilirubin, Total 0.2 mg/dL (0.2-1.0); Total Protein 6.5 g/dL (6.4-8.2)
[2019-10-04] MEDS ORDERED: SODIUM CHLORIDE 0.9% 500 ML IV ONE (22:30)
[2019-10-05] MEDS ORDERED: IOHEXOL 350 MG/ML 100ML IJ ONE (04:26)
[2019-10-05] MEDS ORDERED: FUROSEMIDE 20 MG/2 ML VIAL IV ONE (04:30)
[2019-10-05] MEDS ORDERED: TEMAZEPAM 15 MG CAP PO PRN (06:30)
[2019-10-05] MEDS ORDERED: ACETAMINOPHEN 325 MG TAB PO PRN (06:30)
[2019-10-05] MEDS ORDERED: ONDANSETRON HCL 4 MG/2 ML VIAL IV PRN (06:30)
[2019-10-05] MEDS ORDERED: DEXTROSE (50%) 50ML SYRG IV PRN ×2 (06:30→14:15)
[2019-10-05 09:00] VITALS: BP 111/71
[2019-10-05] MEDS: FAMOTIDINE 20 MG TAB PO SCH ×2 (09:09→21:33)
[2019-10-05 11:10] VITALS: BP 111/71
[2019-10-05] MEDS ORDERED: InsuLIN REG 1unit/0.01ml Soln (100units/ml) SC SCH (12:00)
[2019-10-05] MEDS ORDERED: ACCU-CHEK COMFORT CURVE STRIP VI SCH (12:00)
[2019-10-05 13:00] VITALS: BP 120/60
[2019-10-05] MEDS ORDERED: levoFLOXacin 750MG 150 ML IV ONE (14:15)
[2019-10-05 17:00] VITALS: BP 115/64
[2019-10-05] MEDS: InsuLIN REG 1unit/0.01ml Soln (100units/ml) SC SCH ×2 (17:31→21:33)
[2019-10-05] MEDS: ACCU-CHEK COMFORT CURVE STRIP VI SCH ×2 (17:33→21:33)
[2019-10-05] MEDS: INSULIN 70/30 1unit/0.01ml Susp (100units/ml) SC SCH (17:34)
[2019-10-05 22:00] VITALS: BP 110/54
[2019-10-06 05:00] VITALS: BP 111/67
[2019-10-06] MEDS: InsuLIN REG 1unit/0.01ml Soln (100units/ml) SC SCH ×4 (06:28→21:57)
[2019-10-06] MEDS: ACCU-CHEK COMFORT CURVE STRIP VI SCH ×4 (06:28→21:56)
[2019-10-06 06:30] LABS: Basophils # (auto) 0 10 ^3/uL (0-0.2); Basophils % (auto) 0.9 % (0.0-2.0); Eosinophils # (auto) 0.2 10 ^3/uL (0-0.8); Eosinophils % (auto) 4.3 % (0.0-7.0); Hematocrit 38.4 % (41.0-53.0); Hemoglobin 12.8 g/dL (13.5-17.5); Lymphocytes # (auto) 1.2 10 ^3/uL (0.4-5.4); Lymphocytes % (auto) 32.2 % (10.0-50.0); Mean Corpuscular Hemoglobin 32.4 pg (28.0-32.0); Mean Corpuscular Hgb Conc. 33.3 g/dL (32.0-36.0); Mean Corpuscular Volume 97.4 fL (80.0-100.0); Monocytes # (auto) 0.4 10 ^3/uL (0-1.3); Monocytes % (auto) 10.1 % (0.0-12.0); Neutrophils % (auto) 52.5 % (37.0-80.0); Platelet Count (auto) 123 10^3/uL (140-450); Red Blood Cells 3.95 10^6/uL (4.5-5.90); Red Cell Distribution Width 16.7 % (11.8-14.3); White Blood Cell 3.8 10^3/uL (4.4-10.8)
[2019-10-06 06:35] LABS: INR 1.04 (0.9-1.15); Partial Thromboplastin Time 26.2 sec (23.64-32.05)
[2019-10-06 06:41] LABS: Calcium 8.3 mg/dL (8.5-10.1); Potassium 3.7 mmol/L (3.5-5.1)
[2019-10-06 06:43] LABS: BUN/Creatinine Ratio 9.9
[2019-10-06 06:44] LABS: % Iron Saturation 11.7 % (20-55)
[2019-10-06 06:46] LABS: Ferritin 71.4 ng/mL (10-322)
[2019-10-06] MEDS: INSULIN 70/30 1unit/0.01ml Susp (100units/ml) SC SCH ×2 (08:05→17:00)
[2019-10-06 08:30] VITALS: BP 101/53
[2019-10-06 08:51] VITALS: BP 101/53
[2019-10-06 09:50] LABS: Basophils # (auto) 0 10 ^3/uL (0-0.2); Basophils % (auto) 0.8 % (0.0-2.0); Eosinophils # (auto) 0.2 10 ^3/uL (0-0.8); Eosinophils % (auto) 4.8 % (0.0-7.0); Hematocrit 38.7 % (41.0-53.0); Hemoglobin 12.9 g/dL (13.5-17.5); Lymphocytes # (auto) 0.9 10 ^3/uL (0.4-5.4); Lymphocytes % (auto) 22.6 % (10.0-50.0); Mean Corpuscular Hemoglobin 32.3 pg (28.0-32.0); Mean Corpuscular Hgb Conc. 33.3 g/dL (32.0-36.0); Monocytes # (auto) 0.4 10 ^3/uL (0-1.3); Monocytes % (auto) 9.4 % (0.0-12.0); Neutrophils # (auto) 2.5 10 ^3/uL (1.6-8.6); Neutrophils % (auto) 62.4 % (37.0-80.0); Nucleated Red Blood Cells % 0.1 %; Platelet Count (auto) 116 10^3/uL (140-450); Red Blood Cells 3.99 10^6/uL (4.5-5.90); Red Cell Distribution Width 16.4 % (11.8-14.3)
[2019-10-06] MEDS: levoFLOXacin 750MG 150 ML IV SCH (10:27)
[2019-10-06] MEDS: FAMOTIDINE 20 MG TAB PO SCH ×2 (10:28→21:56)
[2019-10-06] MEDS ORDERED: MIDAZOLAM HCL 1MG/1ML-2 ML VIAL IV ONE (11:30)
[2019-10-06] MEDS ORDERED: LIDOCAINE VISCOUS 2% 15ML UD PO ONE (11:30)
[2019-10-06] MEDS ORDERED: diphenhdrAMINE HCL 50 MG/1 ML VL IV ONE (11:30)
[2019-10-06] MEDS ORDERED: fentaNYL CITRATE 100 MCG/2 ML VL IV ONE (11:30)
[2019-10-06] MEDS ORDERED: CYANOCOBALAMIN (B-12) 1000 MCG/1 ML VIAL SUBCUT ONE (12:00)
[2019-10-06 13:40] VITALS: BP_SYST 110; BP_SYST 128; BP_DIAS 59; BP_DIAS 77
[2019-10-06 17:00] VITALS: BP 111/72
[2019-10-06 22:00] VITALS: BP 124/76
[2019-10-07 04:43] VITALS: BP 106/54
[2019-10-07] MEDS: ACCU-CHEK COMFORT CURVE STRIP VI SCH ×4 (06:25→22:06)
[2019-10-07] MEDS: InsuLIN REG 1unit/0.01ml Soln (100units/ml) SC SCH ×4 (06:30→22:12)
[2019-10-07] MEDS ORDERED: IOHEXOL 300 MG/ML 100ML BOTTLE IJ ONE (07:39)
[2019-10-07 08:00] VITALS: BP 111/56
[2019-10-07] MEDS: INSULIN 70/30 1unit/0.01ml Susp (100units/ml) SC SCH ×2 (08:43→17:41)
[2019-10-07 09:00] VITALS: BP 111/56
[2019-10-07 09:15] LABS: Hepatitis B Surface Antibody Negative
[2019-10-07] MEDS: levoFLOXacin 750MG 150 ML IV SCH (09:36)
[2019-10-07] MEDS: FAMOTIDINE 20 MG TAB PO SCH ×2 (09:37→22:06)
[2019-10-07] MEDS: CYANOCOBALAMIN 500 MCG TAB PO SCH (09:37)
[2019-10-07 10:13] LABS: Hepatitis B Surface Antigen Negative (Negative); Hepatitis C Antibody Negative (Negative)
[2019-10-07 13:00] VITALS: BP 136/74
[2019-10-07 16:39] VITALS: BP 120/62
[2019-10-07] MEDS: FERROUS SULFATE 325 MG TAB PO SCH (17:39)
[2019-10-07 22:00] VITALS: BP 117/62
[2019-10-08 04:57] VITALS: BP 104/44
[2019-10-08 06:12] LABS: Basophils # (auto) 0 10 ^3/uL (0-0.2); Basophils % (auto) 0.8 % (0.0-2.0); Eosinophils # (auto) 0.2 10 ^3/uL (0-0.8); Eosinophils % (auto) 4.5 % (0.0-7.0); Hematocrit 37.8 % (41.0-53.0); Hemoglobin 12.6 g/dL (13.5-17.5); Lymphocytes # (auto) 1.2 10 ^3/uL (0.4-5.4); Mean Corpuscular Hemoglobin 32.4 pg (28.0-32.0); Mean Corpuscular Hgb Conc. 33.3 g/dL (32.0-36.0); Mean Corpuscular Volume 97.5 fL (80.0-100.0); Monocytes # (auto) 0.4 10 ^3/uL (0-1.3); Monocytes % (auto) 11.4 % (0.0-12.0); Neutrophils # (auto) 1.8 10 ^3/uL (1.6-8.6); Neutrophils % (auto) 50.3 % (37.0-80.0); Nucleated Red Blood Cells % 0.1 %; Platelet Count (auto) 110 10^3/uL (140-450); Red Blood Cells 3.88 10^6/uL (4.5-5.90); White Blood Cell 3.6 10^3/uL (4.4-10.8)
[2019-10-08 06:33] LABS: Albumin 2.5 g/dL (3.4-5.0); Calcium 8.2 mg/dL (8.5-10.1); Potassium 3.9 mmol/L (3.5-5.1)
[2019-10-08 06:40] LABS: BUN/Creatinine Ratio 6.4; Bilirubin, Total 0.7 mg/dL (0.2-1.0); Total Protein 5.7 g/dL (6.4-8.2)
[2019-10-08] MEDS: ACCU-CHEK COMFORT CURVE STRIP VI SCH ×3 (06:56→17:25)
[2019-10-08] MEDS: InsuLIN REG 1unit/0.01ml Soln (100units/ml) SC SCH ×3 (06:56→17:24)
[2019-10-08 09:00] VITALS: BP 127/80
[2019-10-08] MEDS ORDERED: FUROSEMIDE 20 MG TAB PO SCH (10:00)
[2019-10-08] MEDS ORDERED: POTASSIUM CHLORIDE 8 MEQ TAB PO SCH (10:00)
[2019-10-08] MEDS: FERROUS SULFATE 325 MG TAB PO SCH ×2 (11:07→17:25)
[2019-10-08] MEDS: levoFLOXacin 750MG 150 ML IV SCH (11:08)
[2019-10-08] MEDS: FAMOTIDINE 20 MG TAB PO SCH (11:08)
[2019-10-08] MEDS: CYANOCOBALAMIN 500 MCG TAB PO SCH (11:35)
[2019-10-08] MEDS: INSULIN 70/30 1unit/0.01ml Susp (100units/ml) SC SCH ×2 (11:48→17:26)
[2019-10-08 13:00] VITALS: BP_SYST 122; BP_SYST 124; BP_DIAS 70; BP_DIAS 74
[2019-10-08] MEDS ORDERED: LEVO500T21 PO (15:38)
[2019-10-08] MEDS ORDERED: FER325T PO (15:38)
[2019-10-08] MEDS ORDERED: INSU70IN3 SC (15:38)
[2019-10-08 16:40] VITALS: BP 132/59
[2019-10-08 20:14] VITALS: BP 108/52
== END 2019-10-08 21:00 | disposition home or self-care (01) | DRG 663 ==
LOC: ER 20:41 → OVERFLOW 20:42 → WEST WING 10-05 08:28
PROVIDERS: ADMIT Nurse Practitioner; ATTEND Internal Medicine
PROC: B246ZZ4 Ultrasonography of Right and Left Heart, Transesophageal (ICD-10-PCS; principal; 2019-10-06)
DX: D73.1 Hypersplenism (principal); D61.818 Other pancytopenia; J18.9 Pneumonia, unspecified organism; J90 Pleural effusion, not elsewhere classified; E44.0 Moderate protein-calorie malnutrition; E10.65 Type 1 diabetes mellitus with hyperglycemia; D50.9 Iron deficiency anemia, unspecified; F12.90 Cannabis use, unspecified, uncomplicated; E66.9 Obesity, unspecified; I89.0 Lymphedema, not elsewhere classified; R16.2 Hepatomegaly with splenomegaly, not elsewhere classified; Z82.49 Family history of ischemic heart disease and other diseases of the circulatory system; Z80.3 Family history of malignant neoplasm of breast; Z82.5 Family history of asthma and other chronic lower respiratory diseases; Z68.33 Body mass index [BMI] 33.0-33.9, adult
CPT/HCPCS: 36415; 71045; 71275; 74177; 80048; 80053; 80307; 81001; 82010; 82164; 82270; 82607; 82728; 82962; 83010; 83036; 83540; 83550; 83615; 83880; 84436; 84443; 84484; 85025; 85045; 85379; 85610; 85730; 86038; 86703; 86706; 86803; 87340; 93005; 93306; 93312; 93971; 99152; G0378; J1815; J1956; J2250

== ENCOUNTER 2019-12-22 17:38 | Inpatient (IN) | payer MEDICAID ==
[~2019-12-22] VITALS: Ht 182.9 cm; Wt 98.7 kg
[~2019-12-22 17:38] MED LIST changes: +FER325T PO; +LEVO500T21 PO
[2019-12-22 19:23] LABS: Basophils # (auto) 0 10 ^3/uL (0-0.2); Basophils % (auto) 0.1 % (0.0-2.0); Eosinophils # (auto) 0 10 ^3/uL (0-0.8); Hemoglobin 19.8 g/dL (13.5-17.5); Monocytes # (auto) 0.4 10 ^3/uL (0-1.3); Nucleated Red Blood Cells % 0.2 %
[2019-12-22 19:24] LABS: Eosinophils % (auto) 0.1 % (0.0-7.0); Lymphocytes # (auto) 0.8 10 ^3/uL (0.4-5.4); Mean Corpuscular Hemoglobin 31.5 pg (28.0-32.0); Mean Corpuscular Hgb Conc. 33.1 g/dL (32.0-36.0); Mean Corpuscular Volume 95.1 fL (80.0-100.0); Monocytes % (auto) 2.4 % (0.0-12.0); Neutrophils % (auto) 92.4 % (37.0-80.0); Platelet Count (auto) 255 10^3/uL (140-450); Red Cell Distribution Width 12.5 % (11.8-14.3); White Blood Cell 16.2 10^3/uL (4.4-10.8)
[2019-12-22 19:30] LABS: Hematocrit 59.9 % (41.0-53.0)
[2019-12-22 19:45] LABS: Albumin 4.8 g/dL (3.4-5.0); Calcium 9.7 mg/dL (8.5-10.1); Potassium 5.1 mmol/L (3.5-5.1)
[2019-12-22] MEDS ORDERED: SODIUM CHLORIDE 0.9% 1,000 ML IV ONE (19:45)
[2019-12-22 19:50] LABS: BUN/Creatinine Ratio 12.9; Bilirubin, Total 0.5 mg/dL (0.2-1.0); Total Protein 10.6 g/dL (6.4-8.2)
[2019-12-22 19:54] LABS: Urine WBC None Seen /hpf (0 - 3)
[2019-12-22 20:07] LABS: Urine Bacteria FEW /hpf (None Seen); Urine Blood 1+ /uL (Negative)
[2019-12-22] MEDS ORDERED: SODIUM CHLORIDE 0.9% 1,000 ML IVB ONE (20:40)
[2019-12-22] MEDS ORDERED: ONDANSETRON HCL 4 MG/2 ML VIAL IV ONE (20:45)
[2019-12-22 22:47] LABS: Magnesium 2.5 mg/dL (1.6-2.6)
[2019-12-22] MEDS ORDERED: InsuLIN R (HUMAN) 100 UNITS in SODIUM CHL 0.9% 99 ML IV SCH (23:12)
[2019-12-22] MEDS ORDERED: SODIUM CHLORIDE 0.9% 1,000 ML IV SCH (23:12)
[2019-12-22] MEDS ORDERED: DEXTROSE (50%) 50ML SYRG IV PRN (23:15)
[2019-12-22] MEDS ORDERED: InsuLIN REG 1unit/0.01ml Soln (100units/ml) IV ONE (23:15)
[2019-12-22] MEDS ORDERED: InsuLIN REG 1unit/0.01ml Soln (100units/ml) ONE (23:25)
[2019-12-22] MEDS: ACCU-CHEK COMFORT CURVE STRIP VI SCH (23:59)
[2019-12-23] MEDS ORDERED: ACETAMINOPHEN 325 MG TAB PO PRN (00:30)
[2019-12-23] MEDS ORDERED: MORPHINE SULF INJ 2 MG/ML SYRINGE 1ML IV PRN (00:30)
[2019-12-23] MEDS ORDERED: INSULIN LANTUS (GLARGINE) 1 /0.01ml (100units/ml) SC ONE (00:30)
[2019-12-23] MEDS ORDERED: TEMAZEPAM 15 MG CAP PO PRN (00:30)
[2019-12-23] MEDS ORDERED: HYDROcodone-ACET 5/325MG TAB PO PRN (00:30)
[2019-12-23] MEDS ORDERED: DEXTROSE (50%) 50ML SYRG IV PRN (00:30)
[2019-12-23] MEDS ORDERED: NITROGLYCERIN 0.4 MG SL TAB SL PRN (00:30)
[2019-12-23] MEDS ORDERED: ONDANSETRON HCL 4 MG/2 ML VIAL IV PRN (00:30)
[2019-12-23] MEDS: SODIUM CHLORIDE 0.9% 1,000 ML IV SCH ×5 (00:45→18:57)
[2019-12-23] MEDS: InsuLIN R (HUMAN) 100 UNITS in SODIUM CHL 0.9% 99 ML IV SCH ×2 (00:57→09:08)
[2019-12-23] MEDS ORDERED: SODIUM BICARBONATE 8.4 % INJ 50ML VIAL IV ONE (01:11)
[2019-12-23 01:18] LABS: Basophils # (auto) 0 10 ^3/uL (0-0.2); Eosinophils # (auto) 0 10 ^3/uL (0-0.8); Eosinophils % (auto) 0.1 % (0.0-7.0); Hemoglobin 18.2 g/dL (13.5-17.5); Lymphocytes # (auto) 0.6 10 ^3/uL (0.4-5.4); Mean Corpuscular Hgb Conc. 33.3 g/dL (32.0-36.0)
[2019-12-23 01:20] LABS: Basophils % (auto) 0.2 % (0.0-2.0); Hematocrit 54.6 % (41.0-53.0); Lymphocytes % (auto) 3.1 % (10.0-50.0); Mean Corpuscular Hemoglobin 31.8 pg (28.0-32.0); Mean Corpuscular Volume 95.3 fL (80.0-100.0); Monocytes # (auto) 0.9 10 ^3/uL (0-1.3); Monocytes % (auto) 4.8 % (0.0-12.0); Neutrophils # (auto) 17.7 10 ^3/uL (1.6-8.6); Neutrophils % (auto) 91.8 % (37.0-80.0); Nucleated Red Blood Cells % 1.1 %; Platelet Count (auto) 223 10^3/uL (140-450); Red Blood Cells 5.73 10^6/uL (4.5-5.90); Red Cell Distribution Width 12.7 % (11.8-14.3); White Blood Cell 19.3 10^3/uL (4.4-10.8)
[2019-12-23] MEDS: SODIUM BICARBONATE 50ML VIAL 100 ML in SOD CHL 0.45% 1,000 ML IV SCH ×2 (01:22→09:10)
[2019-12-23] MEDS: ACCU-CHEK COMFORT CURVE STRIP VI SCH ×15 (01:29→22:36)
[2019-12-23 01:39] LABS: BUN/Creatinine Ratio 10.3; Calcium 8.3 mg/dL (8.5-10.1); Magnesium 2.4 mg/dL (1.6-2.6); Phosphorus 3.9 mg/dL (2.5-4.90); Potassium 5.3 mmol/L (3.5-5.1)
[2019-12-23] MEDS ORDERED: SODIUM CHLORIDE 0.9% 1,000 ML IV SCH (03:12)
[2019-12-23 06:44] LABS: BUN/Creatinine Ratio 8.5; Calcium 8.7 mg/dL (8.5-10.1); Potassium 4.7 mmol/L (3.5-5.1)
[2019-12-23] MEDS: FAMOTIDINE 20 MG TAB PO SCH ×2 (07:35→22:36)
[2019-12-23 11:06] LABS: Magnesium 2.7 mg/dL (1.6-2.6); Phosphorus 4.2 mg/dL (2.5-4.90)
[2019-12-23] MEDS ORDERED: LOSARTAN POTASSIUM 25 MG TAB PO ONE (11:15)
[2019-12-23 12:24] LABS: BUN/Creatinine Ratio 7.6; Calcium 8.9 mg/dL (8.5-10.1); Potassium 4.3 mmol/L (3.5-5.1)
[2019-12-23 16:44] LABS: BUN/Creatinine Ratio 6.3; Calcium 8.9 mg/dL (8.5-10.1); Potassium 4.1 mmol/L (3.5-5.1)
[2019-12-24] MEDS: ACCU-CHEK COMFORT CURVE STRIP VI SCH ×7 (00:06→09:23)
[2019-12-24] MEDS: SODIUM CHLORIDE 0.9% 1,000 ML IV SCH (00:06)
[2019-12-24] MEDS: SODIUM BICARBONATE 50ML VIAL 100 ML in SOD CHL 0.45% 1,000 ML IV SCH (00:07)
[2019-12-24 05:37] LABS: Basophils # (auto) 0 10 ^3/uL (0-0.2); Basophils % (auto) 0.3 % (0.0-2.0); Eosinophils # (auto) 0.2 10 ^3/uL (0-0.8); Eosinophils % (auto) 3.6 % (0.0-7.0); Hematocrit 44.7 % (41.0-53.0); Hemoglobin 15.2 g/dL (13.5-17.5); Lymphocytes # (auto) 1.1 10 ^3/uL (0.4-5.4); Lymphocytes % (auto) 20.9 % (10.0-50.0); Mean Corpuscular Hemoglobin 31.5 pg (28.0-32.0); Mean Corpuscular Volume 92.6 fL (80.0-100.0); Monocytes # (auto) 0.4 10 ^3/uL (0-1.3); Monocytes % (auto) 7.4 % (0.0-12.0); Neutrophils # (auto) 3.6 10 ^3/uL (1.6-8.6); Neutrophils % (auto) 67.8 % (37.0-80.0); Nucleated Red Blood Cells % 0.1 %; Platelet Count (auto) 141 10^3/uL (140-450); Red Blood Cells 4.83 10^6/uL (4.5-5.90); Red Cell Distribution Width 12.2 % (11.8-14.3); White Blood Cell 5.3 10^3/uL (4.4-10.8)
[2019-12-24 05:45] LABS: Calcium 8.7 mg/dL (8.5-10.1)
[2019-12-24 05:50] LABS: BUN/Creatinine Ratio 9.8; Bilirubin, Total 0.6 mg/dL (0.2-1.0); Total Protein 6.9 g/dL (6.4-8.2)
[2019-12-24] MEDS ORDERED: POTASSIUM CHL 20MEQ/100ML 100 ML IV ONE (08:15)
[2019-12-24] MEDS ORDERED: POTASSIUM CHL 20 Meq TABLET PO ONE (08:15)
[2019-12-24] MEDS ORDERED: INSULIN LANTUS (GLARGINE) 1 /0.01ml (100units/ml) SC ONE (08:30)
[2019-12-24] MEDS ORDERED: DEXTROSE (50%) 50ML SYRG IV PRN (09:45)
[2019-12-24 10:00] VITALS: BP 129/64
[2019-12-24] MEDS: FAMOTIDINE 20 MG TAB PO SCH (10:00)
[2019-12-24] MEDS ORDERED: INSULIN LANTUS (GLARGINE) 1 /0.01ml (100units/ml) SC SCH (10:00)
[2019-12-24] MEDS ORDERED: LOSARTAN POTASSIUM 25 MG TAB PO SCH (10:00)
--- NOTE | 2019-12-24 10:00 | NUR ---
PATIENT IN ER ROOM 12, ADMITTED TO ICU FOR DKA. CURRENTLY OFF IV REGULAR INSULIN.
[2019-12-24 10:03] VITALS: BP 113/50
[2019-12-24] MEDS ORDERED: InsuLIN REG 1unit/0.01ml Soln (100units/ml) SC SCH (12:00)
[2019-12-24] MEDS ORDERED: ACCU-CHEK COMFORT CURVE STRIP VI SCH (12:00)
[2019-12-24 13:31] VITALS: BP 122/69
--- NOTE | 2019-12-24 13:53 | NUR ---
Discharge instructions given as ordered. Encourage to follow up with PMD as instructed IN 3-5 DAYS. All questions and concerns addressed. Patient verbalized understanding. Medication reconciliation form completed and copy given to patient. IV removed with catheter intact, pressure dressing applied. No distress noted at time of departure.
== END 2019-12-24 13:53 | disposition home or self-care (01) | DRG 420 ==
LOC: ER 17:38 → TELE 17:39
PROVIDERS: ADMIT Nurse Practitioner; ATTEND Internal Medicine
DX: E10.10 Type 1 diabetes mellitus with ketoacidosis without coma (principal); D72.829 Elevated white blood cell count, unspecified; I10 Essential (primary) hypertension; F12.90 Cannabis use, unspecified, uncomplicated; Z82.5 Family history of asthma and other chronic lower respiratory diseases; Z83.3 Family history of diabetes mellitus; Z91.19 Patient's noncompliance with other medical treatment and regimen
CPT/HCPCS: 36415; 36600; 71045; 80048; 80053; 81001; 82010; 82805; 82962; 83036; 83605; 83690; 83735; 83930; 84100; 85025; 93005; 96361; 96365; 96375; 99291; G0378; J1815; J2405; J3480

== ENCOUNTER 2020-01-28 20:54 | Inpatient (IN) | payer MEDICAID ==
[~2020-01-28] VITALS: Ht 175.3 cm; Wt 43.1 kg
[2020-01-28] MEDS ORDERED: SODIUM CHLORIDE 0.9% 2,850 ML IV ONE (21:30)
[2020-01-28] MEDS ORDERED: SODIUM BICARBONATE 8.4 % INJ 50ML VIAL IV ONE (21:30)
[2020-01-28 21:56] LABS: Basophils # (auto) 0 10 ^3/uL (0-0.2); Basophils % (auto) 0.2 % (0.0-2.0); Eosinophils # (auto) 0 10 ^3/uL (0-0.8); Eosinophils % (auto) 0.2 % (0.0-7.0); Hemoglobin 19.4 g/dL (13.5-17.5); Monocytes # (auto) 0.4 10 ^3/uL (0-1.3); Red Cell Distribution Width 13.2 % (11.8-14.3); White Blood Cell 13.1 10^3/uL (4.4-10.8)
[2020-01-28 21:58] LABS: Lymphocytes # (auto) 0.7 10 ^3/uL (0.4-5.4); Lymphocytes % (auto) 5.3 % (10.0-50.0); Mean Corpuscular Hemoglobin 30.9 pg (28.0-32.0); Mean Corpuscular Hgb Conc. 33.4 g/dL (32.0-36.0); Mean Corpuscular Volume 92.4 fL (80.0-100.0); Neutrophils % (auto) 91.3 % (37.0-80.0); Nucleated Red Blood Cells % 1.6 %; Platelet Count (auto) 211 10^3/uL (140-450); Red Blood Cells 6.29 10^6/uL (4.5-5.90)
[2020-01-28 22:14] LABS: Albumin 4.6 g/dL (3.4-5.0); Calcium 8.9 mg/dL (8.5-10.1); Potassium 4.7 mmol/L (3.5-5.1)
[2020-01-28 22:17] LABS: Bilirubin, Total 0.5 mg/dL (0.2-1.0)
[2020-01-28 22:33] LABS: Hematocrit 58.1 % (41.0-53.0)
[2020-01-28] MEDS ORDERED: KETOROLAC TROMETH 30 MG/ML 1ML VIAL IV ONE (23:00)
[2020-01-28] MEDS ORDERED: ACETAMINOPHEN 325 MG TAB PO ONE (23:00)
[2020-01-29] MEDS ORDERED: NITROGLYCERIN 0.4 MG SL TAB SL PRN (00:45)
[2020-01-29] MEDS ORDERED: ACETAMINOPHEN 325 MG TAB PO PRN (00:45)
[2020-01-29] MEDS ORDERED: TEMAZEPAM 15 MG CAP PO PRN (00:45)
[2020-01-29] MEDS ORDERED: SODIUM CHLORIDE 0.9% 1,000 ML IV ONE (00:45)
[2020-01-29] MEDS ORDERED: INSULIN LANTUS (GLARGINE) 1 /0.01ml (100units/ml) SC ONE ×2 (00:45→15:30)
[2020-01-29] MEDS ORDERED: MORPHINE SULF INJ 2 MG/ML SYRINGE 1ML IV PRN (00:45)
[2020-01-29] MEDS ORDERED: DEXTROSE (50%) 50ML SYRG IV PRN ×2 (00:45)
[2020-01-29] MEDS: SODIUM CHLORIDE 0.9% 1,000 ML IV SCH ×3 (01:07→21:01)
[2020-01-29 01:28] LABS: Urine Bacteria NONE SEEN /hpf (None Seen); Urine Blood TRACE /uL (Negative); Urine Specific Gravity 1.025 (1.001-1.035); Urine WBC <1 /hpf (0 - 3)
[2020-01-29] MEDS ORDERED: SODIUM BICARBONATE 8.4 % INJ 50ML VIAL IV ONE (01:37)
[2020-01-29] MEDS: SODIUM BICARBONATE 50ML VIAL 100 ML in SOD CHL 0.45% 1,000 ML IV SCH ×3 (01:45→21:01)
[2020-01-29 01:53] LABS: BUN/Creatinine Ratio 10.4; Calcium 7.4 mg/dL (8.5-10.1); Potassium 4.2 mmol/L (3.5-5.1)
[2020-01-29] MEDS: ACCU-CHEK COMFORT CURVE STRIP VI SCH ×5 (04:20→20:51)
[2020-01-29] MEDS: InsuLIN REG 1unit/0.01ml Soln (100units/ml) SC SCH ×5 (04:24→21:00)
[2020-01-29 08:41] LABS: BUN/Creatinine Ratio 9.6; Calcium 7.9 mg/dL (8.5-10.1); Potassium 3.9 mmol/L (3.5-5.1)
[2020-01-29] MEDS: ONDANSETRON HCL 4 MG/2 ML VIAL IV PRN ×3 (09:15→15:59)
[2020-01-29] MEDS: FAMOTIDINE 20 MG TAB PO SCH ×2 (09:57→22:48)
[2020-01-29 18:46] LABS: Basophils # (auto) 0 10 ^3/uL (0-0.2); Basophils % (auto) 0.3 % (0.0-2.0); Eosinophils # (auto) 0.3 10 ^3/uL (0-0.8); Hematocrit 47.9 % (41.0-53.0); Hemoglobin 15.9 g/dL (13.5-17.5); Lymphocytes # (auto) 0.9 10 ^3/uL (0.4-5.4); Lymphocytes % (auto) 16.4 % (10.0-50.0); Mean Corpuscular Hemoglobin 30.4 pg (28.0-32.0); Mean Corpuscular Hgb Conc. 33.3 g/dL (32.0-36.0); Mean Corpuscular Volume 91.3 fL (80.0-100.0); Monocytes # (auto) 0.6 10 ^3/uL (0-1.3); Monocytes % (auto) 9.7 % (0.0-12.0); Neutrophils # (auto) 3.9 10 ^3/uL (1.6-8.6); Neutrophils % (auto) 67.6 % (37.0-80.0); Nucleated Red Blood Cells % 0.1 %; Platelet Count (auto) 165 10^3/uL (140-450); Red Blood Cells 5.24 10^6/uL (4.5-5.90); White Blood Cell 5.8 10^3/uL (4.4-10.8)
[2020-01-29 19:05] LABS: BUN/Creatinine Ratio 6.2; Calcium 8.3 mg/dL (8.5-10.1); Potassium 3.6 mmol/L (3.5-5.1)
[2020-01-30] MEDS: ACCU-CHEK COMFORT CURVE STRIP VI SCH ×5 (00:32→16:00)
[2020-01-30] MEDS: InsuLIN REG 1unit/0.01ml Soln (100units/ml) SC SCH ×5 (01:46→16:00)
[2020-01-30] MEDS: SODIUM BICARBONATE 50ML VIAL 100 ML in SOD CHL 0.45% 1,000 ML IV SCH ×2 (05:07→13:51)
[2020-01-30 07:56] LABS: Basophils # (auto) 0 10 ^3/uL (0-0.2); Basophils % (auto) 0.4 % (0.0-2.0); Eosinophils # (auto) 0.3 10 ^3/uL (0-0.8); Eosinophils % (auto) 7.5 % (0.0-7.0); Hemoglobin 14.9 g/dL (13.5-17.5); Lymphocytes # (auto) 1.1 10 ^3/uL (0.4-5.4); Lymphocytes % (auto) 26.5 % (10.0-50.0); Mean Corpuscular Hemoglobin 31.3 pg (28.0-32.0); Mean Corpuscular Hgb Conc. 34.6 g/dL (32.0-36.0); Mean Corpuscular Volume 90.5 fL (80.0-100.0); Monocytes # (auto) 0.5 10 ^3/uL (0-1.3); Monocytes % (auto) 12.4 % (0.0-12.0); Neutrophils # (auto) 2.1 10 ^3/uL (1.6-8.6); Neutrophils % (auto) 53.2 % (37.0-80.0); Nucleated Red Blood Cells % 0.1 %; Platelet Count (auto) 134 10^3/uL (140-450); Red Blood Cells 4.76 10^6/uL (4.5-5.90); Red Cell Distribution Width 13.1 % (11.8-14.3)
[2020-01-30 08:09] LABS: Calcium 8.2 mg/dL (8.5-10.1); Potassium 3.2 mmol/L (3.5-5.1)
[2020-01-30 08:11] LABS: BUN/Creatinine Ratio 8.7
[2020-01-30] MEDS: SODIUM CHLORIDE 0.9% 1,000 ML IV SCH (09:43)
[2020-01-30] MEDS: FAMOTIDINE 20 MG TAB PO SCH (09:47)
[2020-01-30] MEDS ORDERED: INSULIN LANTUS (GLARGINE) 1 /0.01ml (100units/ml) SC SCH ×2 (10:00)
[2020-01-30 17:00] VITALS: BP 125/67
[2020-01-30] MEDS ORDERED: INSU70IN3 SC (18:14)
[2020-01-30] MEDS ORDERED: POTA-180 PO (18:14)
[2020-01-30] MEDS ORDERED: POTASSIUM CHL 20 Meq TABLET PO ONE ×2 (18:15→18:17)
== END 2020-01-30 19:18 | disposition home or self-care (01) | DRG 420 ==
LOC: EDBD 20:54 → ER 20:55 → TELE 20:56
PROVIDERS: ADMIT Nurse Practitioner; ATTEND Nurse Practitioner
DX: E10.10 Type 1 diabetes mellitus with ketoacidosis without coma (principal); D72.829 Elevated white blood cell count, unspecified; E86.0 Dehydration; E87.6 Hypokalemia; N17.0 Acute kidney failure with tubular necrosis; F12.90 Cannabis use, unspecified, uncomplicated; Z79.4 Long term (current) use of insulin; Z82.5 Family history of asthma and other chronic lower respiratory diseases; Z83.3 Family history of diabetes mellitus; Z91.14 Patient's other noncompliance with medication regimen
CPT/HCPCS: 36415; 36600; 71045; 80048; 80053; 81001; 82010; 82805; 82962; 83036; 83605; 83880; 85025; 99291; G0378; J1815; J1885; J2405

== ENCOUNTER 2020-03-08 11:59 | Inpatient (IN) | payer MEDICAID ==
[2020-03-08] VITALS (14 sets, daily range): BP systolic 113–151; BP diastolic 54–78
[~2020-03-08] VITALS: Ht 188 cm; Wt 94.6 kg
[~2020-03-08 11:59] MED LIST changes: -LEVO500T21 PO; +POTA-180 PO
[2020-03-08] MEDS ORDERED: SODIUM CHLORIDE 0.9% 1,000 ML IVB ONE (12:25)
[2020-03-08] MEDS ORDERED: ONDANSETRON HCL 4 MG/2 ML VIAL IV ONE (12:30)
[2020-03-08] MEDS ORDERED: SODIUM CHLORIDE 0.9% 1,000 ML IV ONE (13:00)
[2020-03-08 13:19] LABS: Eosinophils # (auto) 0 10 ^3/uL (0-0.8); Lymphocytes # (auto) 0.8 10 ^3/uL (0.4-5.4)
[2020-03-08 13:21] LABS: Basophils # (auto) 0.1 10 ^3/uL (0-0.2); Basophils % (auto) 0.4 % (0.0-2.0); Eosinophils % (auto) 0.1 % (0.0-7.0); Hematocrit 55.3 % (41.0-53.0); Hemoglobin 18.9 g/dL (13.5-17.5); Mean Corpuscular Hemoglobin 32.7 pg (28.0-32.0); Mean Corpuscular Hgb Conc. 34.2 g/dL (32.0-36.0); Mean Corpuscular Volume 95.5 fL (80.0-100.0); Monocytes # (auto) 0.5 10 ^3/uL (0-1.3); Monocytes % (auto) 3.5 % (0.0-12.0); Neutrophils # (auto) 12.7 10 ^3/uL (1.6-8.6); Nucleated Red Blood Cells % 0.4 %; Platelet Count (auto) 317 10^3/uL (140-450); Red Blood Cells 5.79 10^6/uL (4.5-5.90); Red Cell Distribution Width 13.5 % (11.8-14.3); White Blood Cell 14.2 10^3/uL (4.4-10.8)
[2020-03-08 13:28] LABS: INR 0.92 (0.9-1.15); Partial Thromboplastin Time 25.9 sec (23.0-31.2)
[2020-03-08 13:31] LABS: Calcium 10.2 mg/dL (8.5-10.1); Magnesium 2.3 mg/dL (1.6-2.6); Potassium 4.4 mmol/L (3.5-5.1)
[2020-03-08 13:35] LABS: Albumin 4.7 g/dL (3.4-5.0); BUN/Creatinine Ratio 10.5; Bilirubin, Total 0.4 mg/dL (0.2-1.0); Total Protein 10.2 g/dL (6.4-8.2)
[2020-03-08] MEDS ORDERED: InsuLIN R (HUMAN) 100 UNITS in SODIUM CHL 0.9% 99 ML IV SCH ×4 (13:52)
[2020-03-08] MEDS ORDERED: DEXTROSE (50%) 50ML SYRG IV PRN (14:00)
[2020-03-08] MEDS ORDERED: SODIUM BICARBONATE 8.4 % INJ 50ML VIAL IV ONE (14:15)
[2020-03-08 14:28] LABS: Urine Bacteria NONE SEEN /hpf (None Seen); Urine Blood TRACE /uL (Negative); Urine Specific Gravity 1.025 (1.001-1.035); Urine WBC <1 /hpf (0 - 3)
[2020-03-08] MEDS: ACCU-CHEK COMFORT CURVE STRIP VI SCH ×7 (15:08→23:57)
[2020-03-08] MEDS: SODIUM CHLORIDE 0.9% 1,000 ML IV SCH ×2 (15:09→15:52)
[2020-03-08] MEDS ORDERED: MORPHINE SULF INJ 2 MG/ML SYRINGE 1ML IV ONE ×2 (15:15)
[2020-03-08] MEDS ORDERED: PROMETHAZINE HCL 25 MG/ML 1ML IV ONE ×2 (15:15)
[2020-03-08] MEDS ORDERED: MORPHINE SULF INJ 2 MG/ML SYRINGE 1ML IV PRN (15:45)
[2020-03-08] MEDS ORDERED: NITROGLYCERIN 0.4 MG SL TAB SL PRN (15:45)
--- NOTE | 2020-03-08 16:30 | NUR ---
Midline Placement: Patient educated on need for midline placement. All risks and benefits explained and all questions and concerns addresses prior to procedure. 18g/10cm midline inserted via LEFT BRACHIAL vein using Ultrasound. Sterile technique utilized. Blood return obtained from SINGLE lumen and flushed easily with NS using proper technique. Midline secured with saline lock; biodisc and occlusive dressing applied. Primary RN notified. Midline lot # [id number].
[2020-03-08 16:33] LABS: Alcohol, Urine < 3.0 mg/dL (0-10); Amphetamine Screen, Urine NEGATIVE (NEGATIVE); Barbiturate Scree,Urine NEGATIVE (NEGATIVE); Benzodiazephine Screen, Urine NEGATIVE (NEGATIVE); Cannabinoid Screen, Urine NEGATIVE (NEGATIVE); Cocaine Screen, Urine NEGATIVE (NEGATIVE); Opiate Scree,Urine NEGATIVE (NEGATIVE); Phencyclidine Screen, Urine NEGATIVE (NEGATIVE)
--- NOTE | 2020-03-08 16:47 | NUR ---
REPORT REPORT RECEIVED FROM THE LIBRARY TECHNICAL ASSISTANT.
--- NOTE | 2020-03-08 16:55 | NUR ---
Pt being admitted to ICU KAREN MIKE admitted to ICU via eddie on traffic monitor specialist. Patient transferred to bed, connected to ICU monitoring, and weighed by bedscale, 91.2KG OR 201.1 POUNDS. Patient oriented to Lashanda Lovell, primary RN, unit, room, bed, and unit policies regarding patient care and visiting hours. All questions and concerns addressed, patient verbalized understanding. NOTE: PT GROGGY AFTER EARLIER DOSE OF MORPHINE. ABLE TO TELL ME HIS NAME, ,YEAR AND THAT HE IS IN THE HOSPITAL. DOZES OFF IF NOT BEING INTERACTED WITH. LUNGS CLEAR THROUGHOUT. ROOM AIR SAT OF 100%. TELE ST 118. PALPABLE PULSES TO ALL EXTREMITIES WITH NO EDEMA NOTED. ABD SOFT WITH HYPOACTIVE BOWEL SOUNDS. ABD ATHLETICS DIRECTOR. VOIDS VIA URINAL, NONE AT THIS TIME. VOIDED IN THE ER PRIOR TO ARRIVAL IN THE ICU. DENIES PAIN AFTER RECEIVING MORPHINE FOR ABD PAIN WHILE IN TH ER. RAILS UP X4 AND BED IN LOW POSITION FOR PT SAFETY. CONTINUE TO MONITOR.
[2020-03-08] MEDS ORDERED: SODIUM CHLORIDE 0.9% 1,000 ML IV SCH ×2 (17:52→19:52)
--- NOTE | 2020-03-08 18:20 | NUR ---
ACCUCHECK OF 149 AND DECREASED REGULAR INSULIN DRIP TO 1.5 UNITS/HR. CONTINUE TO MONITOR.
[2020-03-08 19:09] LABS: BUN/Creatinine Ratio 12.1; Calcium 8.2 mg/dL (8.5-10.1); Potassium 3.7 mmol/L (3.5-5.1)
--- NOTE | 2020-03-08 19:30 | NUR ---
Opening Shift Note Received report from day shift RN Lashanda. Pt is lying in bed, eyes closed. Easily arrousable. Pt is AAOx4. Pt oriented to staff and POC. Insulin Drip currently at 1.5units/hr. Bed is locked at lowest position, side rails are up. Pt educated on the call light and call light placed within reach. Pt verbalized understanding. Pt instructed to stay in bed at all times and to call if he needs anything. Will continue to monitor.
--- NOTE | 2020-03-08 19:55 | NUR ---
ACCUCHECK OF 140 AND CONTINUE IV REGULAR INSULIN DRIP AT 1.5 UNITS/HR.
--- NOTE | 2020-03-08 20:00 | NUR ---
REPORT REPORT GIVEN TO FLORESITA RICKS RN.
[2020-03-09] VITALS (37 sets, daily range): BP systolic 99–145; BP diastolic 38–74
[2020-03-09] MEDS: SODIUM CHLORIDE 0.9% 1,000 ML IV SCH ×3 (00:02→07:38)
--- NOTE | 2020-03-09 00:02 | NUR ---
Labs drawn Per MD orders and given to Altaf from lab
[2020-03-09 01:11] LABS: BUN/Creatinine Ratio 9.9; Calcium 8.2 mg/dL (8.5-10.1); Potassium 3.3 mmol/L (3.5-5.1)
[2020-03-09] MEDS: ACCU-CHEK COMFORT CURVE STRIP VI SCH ×10 (01:41→20:21)
--- NOTE | 2020-03-09 03:30 | NUR ---
Labs drawn given to Altaf from lab
[2020-03-09 05:32] LABS: BUN/Creatinine Ratio 10.3; Calcium 8.3 mg/dL (8.5-10.1)
--- NOTE | 2020-03-09 06:15 | NUR ---
Labs drawn and sent to lab
--- NOTE | 2020-03-09 06:55 | NUR ---
Dr Salas paged for Celiro3.0, awaiting call back.
--- NOTE | 2020-03-09 07:30 | NUR ---
Opening Shift Note Assumed care of patient, awake and alert. No S/S of distress/SOB or pain. See interventions for complete assessment. Bed locked on low position, side rails up x2, bed alarms on at all times, call pal within reach, instructed on POC and to call for assist PRN, will continue to monitor for changes Q1hr and PRN.
--- NOTE | 2020-03-09 07:40 | NUR ---
Received call from Dr Patel, updated on patient's status, verbalized understanding. Orders received, read back and verified. Will carry out.
[2020-03-09] MEDS: InsuLIN REG 1unit/0.01ml Soln (100units/ml) SC SCH ×4 (08:00→20:23)
[2020-03-09] MEDS ORDERED: INSULIN LANTUS (GLARGINE) 1 /0.01ml (100units/ml) SC ONE (08:00)
[2020-03-09] MEDS ORDERED: DEXTROSE (50%) 50ML SYRG IV PRN (08:00)
[2020-03-09] MEDS: POTASSIUM CHL 20MEQ/100ML 100 ML IV SCH ×2 (08:44→10:11)
--- NOTE | 2020-03-09 10:00 | NUR ---
Insulin drip turned off, will continue to monitor.
--- NOTE | 2020-03-09 10:45 | NUR ---
Patient out of bed to bedside commode, standby assist, fall precautions in place. No incident.
--- NOTE | 2020-03-09 11:28 | NUR ---
Dr Patel at bedside, updated on patient's status. Patient seen and examined. Received order to transfer patient to Med-Surg floor. Read back and verified. Will carry out new orders.
--- NOTE | 2020-03-09 11:50 | NUR ---
Called Ext [phone] regarding patient's diabetic education, voicemail only, left a message. Awaiting call back.
[2020-03-09] MEDS: INSULIN 70/30 1unit/0.01ml Susp (100units/ml) SC SCH (17:35)
[2020-03-09] MEDS ORDERED: INSULIN LANTUS (GLARGINE) 1 /0.01ml (100units/ml) SC SCH (22:00)
--- NOTE | 2020-03-09 23:31 | NUR ---
ROUNDED: COVERING ASSIGNED RN FOR LUNCH BREAK. EVEN AND UNLABORED BREATHING, NO SIGNS OF RESPIRATORY DISTRESS. VSS OTHERWISE. NO PAIN BEHAVIORS IDENTIFIED. WILL ENDORSE CARE BACK TO ASSIGNED RN
[2020-03-10] MEDS: ACCU-CHEK COMFORT CURVE STRIP VI SCH ×4 (00:13→12:00)
[2020-03-10] MEDS: InsuLIN REG 1unit/0.01ml Soln (100units/ml) SC SCH ×4 (00:14→12:00)
--- NOTE | 2020-03-10 00:41 | NUR ---
PATIENT IS MS STATUS, NOW BED IS AVAILABLE IN [address]. PT. NOTIFIED OF THE TRANSFER, REPORT GIVEN TO LIONEL COFFMAN. PT TO BE TRANSFERED TO FLOOR VIA W/C. WITH OWN BELONGINGS.
--- NOTE | 2020-03-10 00:50 | NUR ---
pt got to floor from ICU, report received from MEGHNA Vázquez
[2020-03-10 05:00] VITALS: BP 129/74
--- NOTE | 2020-03-10 07:30 | NUR ---
Endorsed care to day RN, no sign of distress at this time
--- NOTE | 2020-03-10 07:38 | NUR ---
Opening Shift Note Assumed care of patient from noc shift rn. No S/S of distress/SOB or pain. Safety measure maintained, bed in locked and lowest position, 2 side rails up, personal items and call light within reach. Instructed on POC and to call for assist PRN, will continue to monitor for changes Q1hr and PRN.
[2020-03-10] MEDS ORDERED: INSU70IN3 SC (08:00)
[2020-03-10] MEDS: INSULIN 70/30 1unit/0.01ml Susp (100units/ml) SC SCH (08:24)
[2020-03-10 09:00] VITALS: BP 104/56
[2020-03-10 13:00] VITALS: BP 135/83
--- NOTE | 2020-03-10 16:44 | NUR ---
patient is discharged home per MD's order. Alert and oriented and ambulatory, no s/s distress noted. Pt. Verbalized understanding of discharge instructions. Peripheral IV and picc line discontinued with pressure dressing. Pt tolerated well.
[2020-03-10 17:00] VITALS: BP 101/62
== END 2020-03-10 16:44 | disposition home or self-care (01) | DRG 420 ==
LOC: ER 11:59 → EDBD 11:59 → ICU WEST 12:00 → CENTRAL 03-10 00:55
PROVIDERS: ADMIT Hospitalist; ATTEND Hospitalist
DX: E11.10 Type 2 diabetes mellitus with ketoacidosis without coma (principal); N18.9 Chronic kidney disease, unspecified; E11.22 Type 2 diabetes mellitus with diabetic chronic kidney disease; Z79.4 Long term (current) use of insulin; F17.210 Nicotine dependence, cigarettes, uncomplicated; Z82.49 Family history of ischemic heart disease and other diseases of the circulatory system; Z83.3 Family history of diabetes mellitus; Z91.14 Patient's other noncompliance with medication regimen; Z79.899 Other long term (current) drug therapy
CPT/HCPCS: 36415; 36600; 71045; 74176; 80048; 80053; 80307; 80320; 81001; 82010; 82805; 82962; 83690; 83735; 85025; 85610; 85730; 87081; 96361; 96374; 96375; 99291; G0378; J1815; J2405; J3480

== ENCOUNTER 2020-03-15 13:35 | Emergency (ER) | payer MEDICAID ==
[~2020-03-15] VITALS: Ht 188 cm; Wt 95.3 kg
[~2020-03-15 13:35] MED LIST changes: -POTA-180 PO
[2020-03-15 13:45] VITALS: BP 133/92
== END 2020-03-15 16:36 | disposition home or self-care (01) ==
LOC: ER 13:35
DX: M79.89 Other specified soft tissue disorders (principal); E11.9 Type 2 diabetes mellitus without complications; F17.210 Nicotine dependence, cigarettes, uncomplicated

== ENCOUNTER 2020-06-20 08:09 | Inpatient (IN) | payer MEDICAID ==
[~2020-06-20] VITALS: Ht 188 cm; Wt 95.3 kg
[2020-06-20] MEDS ORDERED: DEXTROSE (50%) 50ML SYRG IV PRN (09:00)
[2020-06-20] MEDS ORDERED: INSULIN LANTUS (GLARGINE) 1 /0.01ml (100units/ml) SC ONE (09:00)
[2020-06-20] MEDS ORDERED: MORPHINE SULFATE 4 MG/ML SYR/VIAL IV ONE ×2 (09:15→13:15)
[2020-06-20] MEDS ORDERED: ONDANSETRON HCL 4 MG/2 ML VIAL IV ONE ×2 (09:15→13:15)
[2020-06-20 09:27] LABS: Hemoglobin 19.1 g/dL (13.5-17.5); White Blood Cell 17.4 10^3/uL (4.4-10.8)
[2020-06-20 09:29] LABS: Mean Corpuscular Hemoglobin 32.4 pg (28.0-32.0); Mean Corpuscular Hgb Conc. 32.8 g/dL (32.0-36.0); Mean Corpuscular Volume 98.8 fL (80.0-100.0); Platelet Count (auto) 319 10^3/uL (140-450); Red Cell Distribution Width 13.2 % (11.8-14.3)
[2020-06-20] MEDS: SODIUM CHLORIDE 0.9% 1,000 ML IV SCH ×4 (09:32→22:05)
[2020-06-20 09:33] LABS: Hematocrit 58.3 % (41.0-53.0)
[2020-06-20] MEDS ORDERED: SODIUM BICARBONATE 8.4% INJ 50ML SYRINGE ONE ×2 (09:35→16:47)
[2020-06-20 09:38] LABS: Basophils % (manual) 0 (0.0-2.0); Blast Cells 0; Eosinophils % (manual) 0 (0-7); Metamyelocytes % 0; Promyelocytes % 0; Reactive Lymphocytes 0
[2020-06-20 09:45] LABS: Albumin 4.7 g/dL (3.4-5.0); Anion Gap 23 (5-15); Calcium 9.3 mg/dL (8.5-10.1); Chloride 102 mmol/L (98-107); Glucose 368 mg/dL (74-106); Magnesium 2.7 mg/dL (1.6-2.6); Potassium 5.4 mmol/L (3.5-5.1); Sodium 130 mmol/L (136-145)
[2020-06-20] MEDS ORDERED: SODIUM BICARBONATE 8.4 % INJ 50ML VIAL IV ONE ×4 (09:45→16:45)
[2020-06-20 09:53] LABS: Alanine Aminotransferase 27 U/L (16-61); Alkaline Phosphatase 157 U/L (45-117); Aspartate Aminotransferase 15 U/L (15-37); Bilirubin, Total 0.6 mg/dL (0.2-1.0); GFR African American 62 mL/min; GFR Non-African American 51 mL/min
[2020-06-20 09:59] LABS: Carbon Dioxide 5 mmol/L (21-32)
[2020-06-20] MEDS: InsuLIN R (HUMAN) 100 UNITS in SODIUM CHL 0.9% 99 ML IV SCH (10:57)
[2020-06-20] MEDS: ACCU-CHEK COMFORT CURVE STRIP VI SCH ×10 (10:58→22:30)
[2020-06-20 11:28] LABS: Urine Bacteria NONE SEEN /hpf (None Seen); Urine Blood 3+ /uL (Negative); Urine Hyaline Cast FEW /lpf (0 - 2); Urine Specific Gravity 1.019 (1.001-1.035); Urine WBC 102 /hpf (0 - 3)
[2020-06-20 12:17] LABS: Band Neutrophils % (manual) 16; Lymphocytes % (manual) 7 (10.0-50.0); Monocytes % (manual) 2 (0-12); Myelocytes % 1
[2020-06-20] MEDS ORDERED: SODIUM CHLORIDE 0.9% 1,000 ML IV SCH (13:00)
[2020-06-20 14:20] LABS: Blood Urea Nitrogen 14 mg/dL (7-18)
[2020-06-20 15:49] LABS: Calcium 7.3 mg/dL (8.5-10.1); Potassium 4.5 mmol/L (3.5-5.1)
[2020-06-20] MEDS: SODIUM BICARB 50ML SYR 150 ML in D5W/SOD CHL 0.45% 1,000 ML IV SCH (16:53)
[2020-06-20] MEDS ORDERED: MORPHINE SULF INJ 2 MG/ML SYRINGE 1ML IV PRN (17:30)
[2020-06-20] MEDS ORDERED: NITROGLYCERIN 0.4 MG SL TAB SL PRN (17:30)
[2020-06-20] MEDS: FERROUS SULFATE 325 MG TAB PO SCH (18:16)
[2020-06-20 23:15] LABS: BUN/Creatinine Ratio 7.8; Calcium 7.4 mg/dL (8.5-10.1); Potassium 3.3 mmol/L (3.5-5.1)
[2020-06-21] MEDS: ACCU-CHEK COMFORT CURVE STRIP VI SCH ×12 (00:11→16:35)
[2020-06-21] MEDS: SODIUM BICARB 50ML SYR 150 ML in D5W/SOD CHL 0.45% 1,000 ML IV SCH ×3 (00:12→15:38)
[2020-06-21] MEDS: InsuLIN R (HUMAN) 100 UNITS in SODIUM CHL 0.9% 99 ML IV SCH ×2 (01:44→16:35)
[2020-06-21 04:11] LABS: BUN/Creatinine Ratio 7.1
[2020-06-21] MEDS: SODIUM CHLORIDE 0.9% 1,000 ML IV SCH ×3 (04:35→16:35)
[2020-06-21 07:36] LABS: Basophils # (auto) 0 10 ^3/uL (0-0.2); Basophils % (auto) 0.1 % (0.0-2.0); Eosinophils # (auto) 0.1 10 ^3/uL (0-0.8); Eosinophils % (auto) 1.6 % (0.0-7.0); Hematocrit 39.3 % (41.0-53.0); Hemoglobin 13.7 g/dL (13.5-17.5); Lymphocytes # (auto) 0.6 10 ^3/uL (0.4-5.4); Lymphocytes % (auto) 11.2 % (10.0-50.0); Mean Corpuscular Hemoglobin 32.1 pg (28.0-32.0); Mean Corpuscular Volume 91.8 fL (80.0-100.0); Monocytes # (auto) 0.9 10 ^3/uL (0-1.3); Monocytes % (auto) 16.6 % (0.0-12.0); Neutrophils % (auto) 70.5 % (37.0-80.0); Nucleated Red Blood Cells % 0.1 %; Platelet Count (auto) 132 10^3/uL (140-450); Red Blood Cells 4.28 10^6/uL (4.5-5.90); Red Cell Distribution Width 12.7 % (11.8-14.3); White Blood Cell 5.6 10^3/uL (4.4-10.8)
[2020-06-21 08:06] LABS: BUN/Creatinine Ratio 7.7; Calcium 8.4 mg/dL (8.5-10.1)
[2020-06-21] MEDS: FERROUS SULFATE 325 MG TAB PO SCH ×2 (08:06→17:03)
[2020-06-21 08:19] LABS: Potassium 2.8 mmol/L (3.5-5.1)
[2020-06-21] MEDS ORDERED: INSULIN LANTUS (GLARGINE) 1 /0.01ml (100units/ml) SC SCH (10:00)
[2020-06-21] MEDS ORDERED: ENOXAPARIN SOD 40 MG/0.4 ML SYRINGE SC SCH (10:00)
[2020-06-21] MEDS ORDERED: PANTOPRAZOLE 40 MG TAB PO SCH (10:00)
[2020-06-21] MEDS ORDERED: POTASSIUM CHLORIDE 60 MEQ, LIDOCAINE 1% (LOCAL ANESTH.) 6 ML in SODIUM CHL 0.9% 500 ML IV ONE (11:15)
[2020-06-21] MEDS ORDERED: POTASSIUM EFFERVESENT TAB 25 MEQ PO ONE (11:15)
[2020-06-21 14:54] LABS: Calcium 8.9 mg/dL (8.5-10.1); Potassium 3.8 mmol/L (3.5-5.1)
[2020-06-21 15:00] VITALS: BP 126/81
[2020-06-21] MEDS ORDERED: DEXTROSE (50%) 50ML SYRG IV PRN (16:45)
[2020-06-21] MEDS ORDERED: FER325T PO (16:48)
[2020-06-21] MEDS ORDERED: INSU70IN3 SC (16:48)
[2020-06-21] MEDS ORDERED: ACCU-CHEK COMFORT CURVE STRIP VI SCH (17:00)
[2020-06-21] MEDS ORDERED: InsuLIN REG 1unit/0.01ml Soln (100units/ml) SC SCH (17:00)
[2020-06-21 17:33] LABS: Amphetamine Screen, Urine NEGATIVE (NEGATIVE); Barbiturate Scree,Urine NEGATIVE (NEGATIVE); Benzodiazephine Screen, Urine NEGATIVE (NEGATIVE); Cannabinoid Screen, Urine POSITIVE (NEGATIVE); Cocaine Screen, Urine NEGATIVE (NEGATIVE); Phencyclidine Screen, Urine NEGATIVE (NEGATIVE)
[2020-06-21 17:41] LABS: Opiate Scree,Urine NEGATIVE (NEGATIVE); Urine Bacteria FEW /hpf (None Seen); Urine Blood 3+ /uL (Negative); Urine Mucus FEW (None Seen); Urine Specific Gravity 1.014 (1.001-1.035); Urine WBC 3 /hpf (0 - 3)
== END 2020-06-21 17:46 | disposition home or self-care (01) | DRG 420 ==
LOC: EDBD 08:09 → ER 08:09 → EDUNIT# 08:09 → OVERFLOW 08:10
PROVIDERS: ADMIT Internal Medicine; ATTEND Internal Medicine
DX: E10.10 Type 1 diabetes mellitus with ketoacidosis without coma (principal); D72.829 Elevated white blood cell count, unspecified; E87.6 Hypokalemia; F12.90 Cannabis use, unspecified, uncomplicated; Z20.822 Contact with and (suspected) exposure to COVID-19; F17.210 Nicotine dependence, cigarettes, uncomplicated; Z79.4 Long term (current) use of insulin; Z82.49 Family history of ischemic heart disease and other diseases of the circulatory system; Z83.3 Family history of diabetes mellitus; Z91.19 Patient's noncompliance with other medical treatment and regimen
CPT/HCPCS: 36415; 36600; 71045; 80048; 80053; 80307; 81001; 82010; 82805; 82962; 83735; 83930; 84100; 84484; 85007; 85025; 85027; 87426; 96372; 96374; 96375; 99291; G0378; J1815; J2001; J2405